=== PATIENT | female | born 1960 | race Caucasian/White ===

== ENCOUNTER 2018-11-24 13:23 | Outpatient (CLI) | payer BC, SELFPAY ==
--- NOTE | 2018-11-24 13:42 | DI.RAD_ITS ---
SYMPTOM/DIAGNOSIS: LT KNEE PAIN, CHRONIC, M25.562 LEFT KNEE: Four views. No priors. There is mild periarticular spurring in the posterior patella. The articular surfaces are otherwise well maintained. The bones are intact and normally mineralized. The soft tissues are unremarkable. IMPRESSION: Minimal degenerative changes of the left knee.
== END 2018-11-24 13:43 ==
PROVIDERS: PCP Internal Medicine; Visit Provider Internal Medicine
DX: M25.562 Pain in left knee (principal); M17.12 Unilateral primary osteoarthritis, left knee; G89.29 Other chronic pain
CPT/HCPCS: 73562

== ENCOUNTER 2019-08-10 09:12 | Outpatient (REF) | payer BC, SELFPAY ==
[2019-08-10 13:32] LABS: Calculated LDL 150 mg/dL; Cholesterol 244 mg/dL (50-200); HDL Cholesterol 79 mg/dL (40-60); Triglyceride 77 mg/dL (30-150)
== END 2019-08-10 09:32 ==
LOC: NCHCN 09:12
PROVIDERS: PCP Internal Medicine; Visit Provider Internal Medicine
DX: Z00.00 Encounter for general adult medical examination without abnormal findings (principal); Z13.220 Encounter for screening for lipoid disorders
CPT/HCPCS: 80061

== ENCOUNTER 2020-08-05 09:43 | Outpatient (CLI) | payer BC, SELFPAY ==
--- NOTE | 2020-08-05 09:00 | DI.RAD_ITS ---
EXAM: XR THUMB RT CLINICAL HISTORY: eval R thump IP swelling and pain TECHNIQUE: COMPARISON: No exams were available for comparison FINDINGS: Three views were obtained. There is nearly complete loss of cartilaginous joint space of the IP join t with very prominent marginal osteophytes at the joint margins. Mild narrowing cartilaginous joint space of the 1st MCP joint noted. Minimal marginal osteophytes at this joint. Greater multangular 1st metacarpal joint shows minimal degenerative changes as well. 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 RADIATION DOSE DELIVERED: Total DLP
== END 2020-08-05 10:03 ==
PROVIDERS: PCP Internal Medicine; Referring Provider Internal Medicine; Visit Provider Student in an Organized Health Care Education/Training Program
DX: M19.041 Primary osteoarthritis, right hand (principal)
CPT/HCPCS: 73140

== ENCOUNTER 2020-10-03 16:56 | Outpatient (REF) | payer BC, SELFPAY ==
[2020-10-06 16:58] LABS: Patient Race White; SARS-CoV-2 RNA Undetected (Undetected); SARS-CoV-2 Specimen Source Nasal
== END 2020-10-03 17:16 ==
LOC: NCHCN 16:56
PROVIDERS: PCP Internal Medicine; Visit Provider Internal Medicine
DX: Z20.828 Contact with and (suspected) exposure to other viral communicable diseases (principal)
CPT/HCPCS: U0003

== ENCOUNTER 2021-08-24 12:03 | Outpatient (CLI) | payer BC, SELFPAY ==
--- NOTE | 2021-08-24 12:47 | DI.RAD_ITS ---
Exam(s) XR CHEST 2V PA LATERAL EXAM: XR CHEST 2V PA LATERAL CLINICAL HISTORY: EXERTIONAL DYSPNEA, R06.09 TECHNIQUE: 2D digital imaging was performed of the chest. Two images were obtained. PA and lateral views were obtained. COMPARISON: CR LEFT RIBS TO INCLUDE CXR from 03/28/2012 CR LEFT RIBS TO INCLUDE CXR from 03/28/2012 FINDINGS: MEDIASTINUM: Normal. HEART: Normal. PULMONARY VASCULATURE: Normal. LUNGS: There are stable fibrotic changes within the lungs. No focal consolidating infiltrates. PLEURAL SPACE: No pleural effusion or pneumothorax. BONE:Within normal limits for the patient's age. OTHER FINDINGS:Normal. IMPRESSION: 1. No acute pulmonary findings. 2. Stable pulmonary fibrosis. DATA REPOSITORY: RADIATION DOSE DELIVERED:
== END 2021-08-24 12:23 ==
PROVIDERS: PCP Internal Medicine; Visit Provider Internal Medicine
DX: R06.09 Other forms of dyspnea (principal)
CPT/HCPCS: 71046

== ENCOUNTER 2021-08-24 12:33 | Outpatient (REF) | payer BC, SELFPAY ==
[2021-08-24 14:11] LABS: HCT 41.2 % (36.0-46.0); HGB 13.5 g/dL (11.2-15.7); MCH 30.5 pg (27.0-33.0); MCHC 32.8 % (32.0-36.0); MCV 93.2 fL (80-95); MPV 12.4 fL (8.0-11.0); Platelet Count 302 10^3/uL (130-400); RBC 4.42 10^6/uL (3.93-5.22); RDW 12.5 % (11.7-14.6); RDW-SD 43.6 fL; WBC 5.76 10^3/uL (4.4-10.8)
[2021-08-24 14:30] LABS: BUN 27 mg/dL (7-18); CREATININE 0.7 mg/dL (0.55-1.02); Calcium 8.8 mg/dL (8.5-10.1); Chloride 106 mmol/L (98-107); Glucose 84 mg/dL (74-106); Magnesium 1.9 mg/dL (1.8-2.4); NT-proBNP 74 pg/mL (<300); Potassium 4.6 mmol/L (3.5-5.1); Sodium 141 mmol/L (136-145)
== END 2021-08-24 12:34 | disposition home or self-care (01) ==
LOC: NCHCN 12:33
PROVIDERS: PCP Internal Medicine; Visit Provider Internal Medicine
DX: R00.2 Palpitations (principal); R06.09 Other forms of dyspnea
CPT/HCPCS: 80048; 85027; 83735; 83880

== ENCOUNTER 2021-09-01 01:04 | Outpatient (CLI) | payer BC, SELFPAY ==
[2021-09-01] MEDS: Albuterol HFA 18 GM 200 PUFF INH IH (14:18)
[2021-09-01] MEDS: Inhaler, Assist Device 1 EACH MC (14:18)
--- NOTE | 2021-09-05 17:35 | W.PFT ---
Date of service: 09/01/21 Time of Service: 13:09 Pulmonary Function Test Result Requesting Provider Kade Garcia Indications: Dyspnea on exertion Interpretation Spirometry: There is severe airflow obstruction. There is a reduced forced vital capacity. Although criteria is not met for bronchodilator response given the low volumes there likely is a significant bronchodilator response on the Lung Volumes: There is evidence of hyperinflation and air trapping Diffusion Capacity: Diffusion is normal Airway Pressure: Airways resistance is elevated Impression Severe airflow obstruction with hyperinflation and air trapping and a normal diffusion may represent either COPD with chronic bronchitis or uncontrolled asthma Clinical Correlation therefore is recommended.
== END 2021-09-01 01:05 | disposition home or self-care (01) ==
LOC: RT 01:04
PROVIDERS: PCP Internal Medicine; Visit Provider Internal Medicine
DX: R06.09 Other forms of dyspnea (principal); Z86.19 Personal history of other infectious and parasitic diseases; R06.2 Wheezing; R94.2 Abnormal results of pulmonary function studies
CPT/HCPCS: 94060; 94726; 94729

== ENCOUNTER 2021-12-11 16:28 | Outpatient (REF) | payer OTHER, SELFPAY ==
--- NOTE | 2021-12-11 15:03 | SKI_PTH ---
PATIENT: Cinthia Casillas LOC: [facility] U#:[id number] AGE/SX: 61/F ROOM: RE12/11/[address]: Ebony Alvarado : 1960 BED: DIS: 12/11/2021 SPEC #: [id number] RECD: 12/11/21 18:10 STATUS: VAMSHI REBarbra #: [id number] JOSE: 12/11/21 15:[address]: Ebony Alvarado DEPT: Surgical Specimen RECD BY: Yuli Stapleton ENTERED: 12/11/21 18:10 SP TYPE: SKI OT DR: Kit Garcia Tissues: 1 - SKIN BIOPSY(SHAVE/PUNCH) Procedures: SKIN LEVEL 4 Comments: [id number]
== END 2021-12-11 16:29 | disposition home or self-care (01) ==
LOC: LBN 16:28
PROVIDERS: PCP Internal Medicine; Visit Provider Surgery
DX: D23.71 Other benign neoplasm of skin of right lower limb, including hip (principal)
CPT/HCPCS: 88305

== ENCOUNTER 2022-05-23 16:49 | Outpatient (REF) | payer OTHER, SELFPAY ==
[2022-05-23 20:52] LABS: D-Dimer 304 ng/mlFEU (<500)
== END 2022-05-23 16:50 | disposition home or self-care (01) ==
LOC: NCHCN 16:49
PROVIDERS: PCP Internal Medicine; Visit Provider Nurse Practitioner Family
DX: I80.8 Phlebitis and thrombophlebitis of other sites (principal)
CPT/HCPCS: 85379

== ENCOUNTER → 2022-10-12 00:40 | Outpatient (CLI) | payer OTHER, SELFPAY ==
--- NOTE | 2022-10-12 14:18 | DI.DEXA_ITS ---
Exam(s) XR DEXA BONE DENSITY W/WO MELISSA EXAM: XR DEXA BONE DENSITY W/WO MELISSA CLINICAL HISTORY: OSTEOPOROSIS, M81.0, [facility], Z00.00 TECHNIQUE: COMPARISON: CR LEFT HIP COMPLETE from 05/14/2012 FINDINGS: DEXA scan was performed according to the usual protocol. Please see the accompanying data sheets. Findings for left hip scanning are T-score -3.9 with left femoral neck T-score -4.1. Lumbar spine scanning shows T-score -4.3. Left forearm scanning shows T-score -4.6. IMPRESSION: Measurements are consistent with osteoporosis according to the WHO criteria. The lateral vertebral s canogram shows no evidence of a vertebral compression fracture. RADIATION DOSE DELIVERED: Total DLP
== END ==
PROVIDERS: PCP Internal Medicine; Visit Provider Internal Medicine
DX: Z13.820 Encounter for screening for osteoporosis (principal); M81.0 Age-related osteoporosis without current pathological fracture
CPT/HCPCS: 77080

== ENCOUNTER 2022-10-25 15:35 | Outpatient (REF) | payer OTHER, SELFPAY ==
[2022-10-25 20:42] LABS: Abs Immature Grans 0.02 10^3/uL (0.0-0.06); Absolute Basophil Count 0.05 10^3/uL (0.0-0.2); Absolute Eosinophil Count 0.23 10^3/uL (0.0-0.7); Absolute Lymphocyte Count 1.79 10^3/uL (1.2-3.4); Absolute Monocyte Count 0.92 10^3/uL (0.1-0.8); Absolute Neutrophil Count 6.46 10^3/uL (1.2-6.7); Basophils % 0.5; Eosinophils % 2.4; HCT 41.9 % (36.0-46.0); HGB 13.7 g/dL (11.2-15.7); Immature Grans % 0.2; Lymphocytes % 18.9; MCH 29.9 pg (27.0-33.0); MCHC 32.7 % (32.0-36.0); MCV 92 fL (80-95); MPV 12.1 fL (8.0-11.0); Monocytes % 9.7; Neutrophils % 68.3; Platelet Count 383 10^3/uL (130-400); RBC 4.58 10^6/uL (3.93-5.22); RDW 12.6 % (11.7-14.6); RDW-SD 42.3 fL; WBC 9.47 10^3/uL (4.4-10.8)
[2022-10-25 21:03] LABS: ALT 15 U/L (14-59); AST 17 U/L (15-37); Albumin 3.8 g/dL (3.4-5.0); Alkaline Phosphatase 119 U/L (46-116); Anion Gap 9.5 mmol/L (3-11); BUN 18 mg/dL (7-18); Bilirubin, Total 0.4 mg/dL (0.2-1.0); CO2 29.5 mmol/L (21.0-32.0); CREATININE 0.7 mg/dL (0.55-1.02); Calcium 9.3 mg/dL (8.5-10.1); Chloride 99 mmol/L (98-107); Estimated GFR 97.72 (mL/min/1.73m2); Glucose 87 mg/dL (74-106); Potassium 4.8 mmol/L (3.5-5.1); Sodium 138 mmol/L (136-145)
== END 2022-10-25 15:36 | disposition home or self-care (01) ==
LOC: NCHCN 15:35
PROVIDERS: PCP Internal Medicine; Visit Provider Family Medicine
DX: R10.9 Unspecified abdominal pain (principal)
CPT/HCPCS: 80053; 85025

== ENCOUNTER 2022-10-30 12:50 | Emergency (ER) | payer OTHER, SELFPAY ==
[2022-10-30 12:56] VITALS: BP 104/81; PULSE 102; RESP 18; TEMP 36.9; O2SAT 97
--- NOTE | 2022-10-30 13:00 | DI.CT_ITS ---
Exam(s) CT ABDOMEN PELVIS W EXAM: CT ABDOMEN PELVIS W CLINICAL HISTORY: lower abdominal pain TECHNIQUE: Imaging Protocol: Axial computed tomography images with coronal and sagittal reformatted images were created and reviewed CONTRAST MATERIAL: Intravenous: Omnipaque 350 Contrast volume:79 mL Oral: No COMPARISON: No exams were available for comparison FINDINGS: ABDOMEN: Lung Bases: There is a small hiatal hernia. Bronchiectatic changes are seen in the lung bases. Liver: Normal density. No measurable mass. Portal, Superior Mesenteric, and Splenic Veins: Unremarkable. Gallbladder and Biliary Tract: No radiodense calculus or dilation. Pancreas: Normal density, no abnormal calcifications or inflammatory process. Spleen: Normal. Adrenals: No masses seen. Kidneys: Normal size, contour and axis. No radiodense stones or obstructive uropathy. No masses seen. Abdominal Aorta: Abdominal portion non-dilated. Atherosclerosis is present. Bowel: There is wall thickening seen in the distal sigmoid colon with pericolonic inflammatory change s present. There are scattered diverticula in the sigmoid colon. The findings are most suggestive o f acute diverticulitis. There is stool seen throughout the colon suggesting constipation. Appendix is unremarkable. Peritoneal Cavity: No ascites, collection or mesenteric inflammatory response. No free air. Lymph Nodes: Within normal limits. Bones: Within normal limits for the patient's age. Soft Tissues: Unremarkable. PELVIS: Bladder: Symmetric distention, no gross wall thickening. Reproductive Organs: Unremarkable as visualized. Lymph Nodes: Within normal limits. Bones: Within normal limits for the patient's age. IMPRESSION: 1. Findings of acute sigmoid diverticulitis. No abscess or free air is identified. 2. Findings were discussed with Dr. Hall at 2:15 p.m. on 10/30/2022. RADIATION DOSE DELIVERED: 636.07mGy.cm Total DLP DATA REPOSITORY: All CT scans at this facility are submitted to the National Radiology Data Registry (NRDR) Dose Index Registry (DIR) with the [employer] (A[employer]). RADIATION OPTIMIZATION: All CT scans at this facility use at least one of these dose optimization te chniques: automated exposure control; mA and/or kV adjustment per patient size (includes targeted exa ms where dose is matched to clinical indication); or iterative reconstruction.
--- NOTE | 2022-10-30 13:12 | ED.GENADUL_ITS ---
Discharge Plan Disposition Patient Disposition: Home Condition: Stable Discharge Details Clinical Impression: Abdominal pain, Diverticulitis Primary Care Provider: Kit Garcia ED Provider: Juan Hall Home Meds and New Rx's Prescriptions: New amoxicillin-pot clavulanate 875-125 mg tablet 1 tab PO BID Qty: 14 0RF Continued Spiriva with HandiHaler 18 mcg capsule, w/inhalation device 1 cap inhalation DAILY Rx Instructions: puncture 1 cap using device; one dose = 2 inhalations calcium carbonate-vitamin D3 [Calcium 600 with Vitamin D3] 600 mg-12.5 mcg (500 unit) capsule 6 cap PO DAILY Premarin 0.625 mg/gram cream 0.625 mg vaginal .COMPLEX Rx Instructions: per referral pt to use twice a week alendronate [Fosamax] 70 mg tablet 1 tab PO QWEEK Label Comments: Take 1 tablet by mouth once a week on empty stomach w/ full glass water. Stay upright for 30 min after. Breztri Aerosphere 160-9-4.8 mcg/actuation Hfa Aerosol Inhaler 2 inh INHALATION BID Discharge Instructions Instructions: Diverticulitis (ED) Additional Instructions: if not improving within a week follow up with your primary care provider if you feel more ill, have severe worsening pain or persistent vomiting return to the emergency department Medical Decision Making 61 yo female with no prior abdominal surgeries and no significant pmhx comes in with cc of abdominal pain. She states she has had a dull ache for weeks but the last few days has had worse pain and is sharp and cramping in nature. She denies fevers, chills, chest pain, n/v, urinary symptoms. She arrives stable, caox4 speaking clearly in full sentences. She localizes the pain to the lower abdomen. She has a soft abdomen on exam, no distention, no upper abdominal tenderness but is tender to deep palpation in both the lower right and left abdomen without guarding. Unclear etiology for her pain, will obtain cbc, cmp, lipase and ct abdomen pelvis to evaluate for pancreatitis, sbo and diverticulitis. No severe pain or pain out of proportion to exam so doubt mesenteric ischemia labs show wbc of 14 otherwise benign, ct shows diverticulitis without abscess or perforation. Pt stable, sleeping on reassessment and awakens easily to voice, only has mild tenderness in llq no guarding. She is stable for d/c,will place on augmentin and advised to f/u with pcp, return precautions given Differential Diagnosis Differential Diagnosis: diverticulitis, colitis, sbo Medical Records Medical records reviewed: Yes I reviewed the patient's medical records. Lab Data Lab results reviewed: Yes I reviewed the patient's lab results. Sign Out No HPI General Mode of arrival: ambulatory . Date/Time Provider Initiated Documentation: 10/30/22 12:52 . Limitations to Documentation: no limitations . Information obtained by: patient . History of Present Illness 61 year old F presents to the emergency department with the chief complaint of abdominal pain, described as moderate, Quality is described as stabbing, and is localized to the abdomen. Patient reports no radiation. Patient started experiencing this week(s) (4) and it has been intermittent. No relieving factors improve symptom(s), No exacerbating factors reported . Patient notes denies fever/chills and nausea/vomiting. Patient did receive the following treatments prior to arrival, none Related Data Home Medications Medication Instructions Recorded Confirmed conjugated estrogens 0.625 mg/gram 0.625 mg vaginal .COMPLEX 09/27/21 10/30/22 vaginal cream (Premarin) calcium carbonate 600 mg-vitamin 6 cap PO DAILY 11/27/21 10/30/22 D3 12.5 mcg (500 unit) capsule (Calcium 600 with Vitamin D3) tiotropium bromide 18 mcg capsule 1 cap inhalation DAILY 11/27/21 10/30/22 with inhalation device (Spiriva with HandiHaler) alendronate 70 mg tablet (Fosamax) 1 tab PO QWEEK 10/30/22 10/30/22 amoxicillin 875 mg-potassium 1 tab PO BID #14 tabs 10/30/22 clavulanate 125 mg tablet budesonide 160 mcg-glycopyr 9 2 inh inhalation BID 10/30/22 10/30/22 mcg-formot 4.8 mcg/actuation HFA inhaler (Breztri Aerosphere) Previous Rx's Medication Instructions Recorded amoxicillin 875 mg-potassium 1 tab PO BID #14 tabs 10/30/22 clavulanate 125 mg tablet Allergies Allergy/AdvReac Type Severity Reaction Status Date / Time benzoyl peroxide Allergy Mild Rash Verified 10/30/22 13:03 famotidine [From Pepcid] Allergy Mild Verified 10/30/22 13:03 General Stated Complaint: Abd Prob ERIN: 3 Review of Systems All systems reviewed & are unremarkable except as noted in HPI and below Constitutional Constitutional: Denies chills, Denies fever(s) and Denies weakness Cardiovascular Cardiovascular: Denies chest pain and Denies dyspnea Respiratory Respiratory: Denies cough and Denies dyspnea Gastrointestinal Gastrointestinal: Denies nausea and Denies vomiting Musculoskeletal Musculoskeletal: Denies joint swelling Integumentary/Breasts Skin/Breast: Denies rash Neurologic Neurologic: Denies weakness PFSH All Active Problems (Updated 10/30/22 @ 14:43 by Juan Hall MD) Abdominal pain (Acute) Diverticulitis (Chronic) Dermatofibroma of right lower extremity (Acute) excised 12/09 Skin tags, multiple acquired (Acute) Medical History (Updated 10/30/22 @ 14:43 by Juan Hall MD) 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 Osteoporosis Pain of right thumb Reactive airway disease Skin lesion of right leg Social History Smoking/Tobacco Use Status: Never Smoking risk assessment performed?: Yes Alcohol Intake: never Drug use: Never Substance use type: does not use Do you feel safe at home: Yes Do you feel safe in your relationship?: Yes Exam Const General: no acute distress Orientation: alert HENMT Head: normal to inspection Ears: external ears normal General nose exam: external nose normal Mouth: moist mucous membranes Eyes General: appearance normal, both eyes and all related structures Neck Neck: normal visual inspection Resp Effort & Inspection: normal respiratory effort and able to speak in complete sentences Cardio Rate: regular rate GI Palpation: soft and tender Skin General skin exam: no rashes or lesions noted Neuro General: patient alert and patient oriented x3 Extrem General: normal to inspection Psych Mental Status: mental status grossly normal Course Vital Signs Vital signs: Vital Signs Temperature 36.9 C 10/30/22 12:56 Pulse 102 H 10/30/22 12:56 Respiratory Rate 18 10/30/22 12:56 Blood Pressure 104/81 10/30/22 12:56 Pulse Oximetry 97 10/30/22 12:56 Temperature 36.9 C 10/30/22 12:56 Temperature Source Oral 10/30/22 12:56 Pulse 102 H 10/30/22 12:56 Respiratory Rate 18 10/30/22 12:56 Respiratory Effort Non-Labored 10/30/22 13:02 Blood Pressure 104/81 10/30/22 12:56 Blood Pressure Position Sitting 10/30/22 12:56 Pulse Oximetry 97 10/30/22 12:56 Oxygen Delivery Method High Flow System 10/30/22 12:56 Oxygen Flow Rate 0 10/30/22 12:56 Pain Level 9 10/30/22 12:56
[2022-10-30 13:27] LABS: Abs Immature Grans 0.08 10^3/uL (0.0-0.06); Absolute Eosinophil Count 0.11 10^3/uL (0.0-0.7); Absolute Lymphocyte Count 0.99 10^3/uL (1.2-3.4); Absolute Monocyte Count 1.17 10^3/uL (0.1-0.8); Basophils % 0.4; Eosinophils % 0.8; HCT 41.3 % (36.0-46.0); HGB 13.6 g/dL (11.2-15.7); Immature Grans % 0.6; MCH 29.6 pg (27.0-33.0); MCHC 32.9 % (32.0-36.0); MCV 90 fL (80-95); MPV 11.1 fL (8.0-11.0); Monocytes % 8.2; Platelet Count 435 10^3/uL (130-400); RBC 4.59 10^6/uL (3.93-5.22); RDW 12.2 % (11.7-14.6); RDW-SD 40.4 fL; WBC 14.21 10^3/uL (4.4-10.8)
[2022-10-30 13:28] LABS: Absolute Basophil Count 0.06 10^3/uL (0.0-0.2); Absolute Neutrophil Count 11.79 10^3/uL (1.2-6.7)
[2022-10-30 13:41] LABS: ALT 12 U/L (14-59); AST 12 U/L (15-37); Albumin 3.5 g/dL (3.4-5.0); Alkaline Phosphatase 117 U/L (46-116); Anion Gap 9.8 mmol/L (3-11); BUN 14 mg/dL (7-18); Bilirubin, Total 0.5 mg/dL (0.2-1.0); CO2 28.2 mmol/L (21.0-32.0); CREATININE 0.8 mg/dL (0.55-1.02); Calcium 9.4 mg/dL (8.5-10.1); Chloride 98 mmol/L (98-107); Estimated GFR 83.26 (mL/min/1.73m2); Glucose 101 mg/dL (74-106); Lipase 53 U/L (73-393); Magnesium 1.9 mg/dL (1.8-2.4); Potassium 3.6 mmol/L (3.5-5.1); Sodium 136 mmol/L (136-145); Total Protein 8.6 g/dL (6.4-8.2)
[2022-10-30] MEDS: Omnipaque 350 MG/ML 500 ML BTL-Imaging package IJ (13:41)
[2022-10-30] MEDS: Normal Saline - Diluent 50 ML VIAL IJ (13:42)
[2022-10-30 13:45] LABS: Bilirubin Negative (Negative); Blood Trace-lysed (Negative); Clarity Clear (Clear); Glucose Negative (Negative); Ketones 15 mg/dL (Negative); Leukocyte Esterase Negative (Negative); Nitrite Negative (Negative); Urobilinogen 0.2 EU/dL (Up TO 0.2)
[2022-10-30 13:55] LABS: Bacteria Few HPF (Negative); Casts Negative LPF (Negative); Crystals Negative HPF (Negative); Epithelial Cells Negative HPF (Negative); Mucus Negative (Negative); Other Cells Rare Renal (Negative); RBC 0-2 HPF (0-2); WBC Negative HPF (0-5)
[2022-10-30 13:56] LABS: C & S Indicated? No
[2022-10-30] MEDS: Normal Saline 1,000 ML 1000 ML IV (14:54)
[2022-10-30 14:55] VITALS: BP 122/64; PULSE 96; RESP 18; TEMP 37.2; O2SAT 94
== END 2022-10-30 14:55 | disposition home or self-care (01) ==
PROVIDERS: Emergency Provider Emergency Medicine; PCP Internal Medicine
DX: K57.92 Diverticulitis of intestine, part unspecified, without perforation or abscess without bleeding (principal); J45.909 Unspecified asthma, uncomplicated; Z79.51 Long term (current) use of inhaled steroids
CPT/HCPCS: 80053; 83690; 96360; 99285; 74177; 81003; 81015; 83735; 85025; 99284

== ENCOUNTER 2022-12-14 02:49 | Observation (INO) | payer OTHER, SELFPAY ==
[2022-12-14] VITALS (7 sets, daily range): BP systolic 116–143; BP diastolic 65–75; PULSE 66–94; RESP 16–18; TEMP 36.3–37.3; O2SAT 94–99
--- NOTE | 2022-12-14 02:57 | ED.GENADUL_ITS ---
Discharge Plan Disposition Patient Disposition: Admit to [facility] Condition: Stable Discharge Details Clinical Impression: Acute diverticulitis, Intraabdominal fluid collection Admit Date/Time: 12/14/22 05:24 Admit Provider: Phillip Marsh Attending Provider: Phillip Marsh Primary Care Provider: Kit Garcia ED Provider: Jennifer Deleon Discharge Data Discharge Date/Time-TO BE ENTERED AT DEPARTURE: 12/14/22 10:31 Medical Decision Making 0300 -- 62yo F diagnosed with diverticulitis here last month and treated with 2 rounds of augmentin with persistence of abdominal pain and nausea presents with worsening symptoms since yesterday. Vitals within normal limits. Patient is afebrile. Her abdomen is soft and tender across the lower quadrant. Suspect recurrent diverticulitis. We will obtain screening labs, repeat CT. 05 --labs reviewed. White blood cell count 14.8 which is similar to previous result last month. Remainder of labs unremarkable. CT reviewed and notes acute diverticulitis with small fluid collection conc erning for abscess. Case discussed and imaging reviewed with Dr. Marsh who recommends admission for IV antibiotics as patient has failed 2 treatment regimens of outpatient oral antibiotics. Recommends LR at 100 cc/h. Agrees with plan for Cipro and Flagyl IV. Patient can be given ice chips and clear liquids at this time. Dr. Marsh accepts patient for admission. Results discussed with the patient and she is agreeable with plan for admission. She states her pain and nausea is much improved. Medical Records Medical records reviewed: Yes I reviewed the patient's medical records. Medical records narrative: CT abdomen/pelvis 11/28/22 Impression: Some improvement in sigmoid diverticulitis however significant inflammation persists.? No abscess or perforation.? New findings. CT abdomen/pelvis 10/30/22 IMPRESSION: 1. Findings of acute sigmoid diverticulitis.? No abscess or free air is identified. Imaging Data Radiologic Study: Radiologist's impression: ?CT Abdomen And Pelvis With Contrast Exam date and time: 12/14/2022 3:27 AM Age: 62 years old Clinical indication: Abdominal pain; Localized; Lower; Additional info: Lower abdominal pain, h/o diverticulitis TECHNIQUE: Imaging protocol: Computed tomography of the abdomen and pelvis with contrast. Radiation optimization: All CT scans at this facility use at least one of these dose optimization techniques: automated exposure control; mA and/or kV adjustment per patient size (includes targeted exams where dose is matched to clinical indication); or iterative reconstruction. Contrast material: OMNI 350; Contrast volume: 100 ml; Contrast route: INTRAVENOUS (IV);? COMPARISON: CT ABDOMEN PELVIS W 11/28/2022 1:47 PM FINDINGS: Liver: Normal. No mass. Gallbladder and bile ducts: Normal. No calcified stones. No ductal dilation. Pancreas: Normal. No ductal dilation. Spleen: Normal. No splenomegaly. Adrenal glands: Normal. No mass. Kidneys and ureters: Normal. No hydronephrosis. Stomach and bowel: Colonic diverticulosis There is evidence of bowel wall thickening involving the rectum and sigmoid colon, with significant surrounding fat stranding. Findings are suspicious for acute diverticulitis. There is a 1.7 x 1.3 cm loculated fluid collection adjacent to the distal sigmoid colon, suspicious for abscess. No visualized perforation. Small bowel loops are unremarkable. Appendix: No evidence of appendicitis. Intraperitoneal space: Small volume of free fluid within the pelvis. Vasculature: Unremarkable. No abdominal aortic aneurysm. Lymph nodes: Unremarkable. No enlarged lymph nodes. Urinary bladder: Unremarkable as visualized. Reproductive: Unremarkable as visualized. Bones/joints: Unremarkable. No acute fracture. Soft tissues: Unremarkable. IMPRESSION: 1. Colonic diverticulosis There is evidence of bowel wall thickening involving the rectum and sigmoid colon, with significant surrounding fat stranding. Findings are suspicious for acute diverticulitis. There is a 1.7 x 1.3 cm loculated fluid collection adjacent to the distal sigmoid colon, suspicious for abscess. No visualized perforation. 2. Small volume of free fluid within the pelvis. Lab Data Lab results reviewed: Yes I reviewed the patient's lab results. Labs: Laboratory Tests Range/Units 12/14/22 12/14/22 12/14/22 03:10 03:10 03:10 WBC (4.4-10.8) 10^3/uL 14.83 H RBC (3.93-5.22) 10^6/uL 4.20 Hgb (11.2-15.7) g/dL 12.0 Hct (36.0-46.0) % 37.1 MCV (80-95) fL 88 MCH (27.0-33.0) pg 28.6 MCHC (32.0-36.0) % 32.3 RDW (11.7-14.6) % 13.0 Plt Count (130-400) 10^3/uL 451 H MPV (8.0-11.0) fL 10.6 Immature Gran % 0.5 Neutrophils % 89.7 Lymphocytes % 4.7 Monocytes % 4.7 Eosinophils % 0.1 Basophils % 0.3 Nucleated RBC % (0.0-0.3) % 0.0 Absolute Neutrophils (1.2-6.7) 10^3/uL 13.30 H Absolute Lymphocytes (1.2-3.4) 10^3/uL 0.70 L Absolute Monocytes (0.1-0.8) 10^3/uL 0.70 Absolute Eosinophils (0.0-0.7) 10^3/uL 0.01 Absolute Basophils (0.0-0.2) 10^3/uL 0.04 Sodium (136-145) mmol/L 136 Potassium (3.5-5.1) mmol/L 4.1 Chloride (98-107) mmol/L 101 Carbon Dioxide (21.0-32.0) mmol/L 24.6 Anion Gap (3-11) mmol/L 10.4 BUN (7-18) mg/dL 10 Creatinine (0.55-1.02) mg/dL 0.7 Est GFR (CKD-EPI 2020) (mL/min/1.73m2) 97.12 Glucose (74-106) mg/dL 139 H Calcium (8.5-10.1) mg/dL 9.1 Total Bilirubin (0.2-1.0) mg/dL 0.4 AST (15-37) U/L 11 L ALT (14-59) U/L 8 L Alkaline Phosphatase (46-116) U/L 106 Total Protein (6.4-8.2) g/dL 7.9 Albumin (3.4-5.0) g/dL 3.0 L Lipase (73-393) U/L 46 HPI General Mode of arrival: ambulatory . Date/Time Provider Initiated Documentation: 12/14/22 02:49 . Limitations to Documentation: no limitations . Information obtained by: patient . HPI Narrative: Pt is a 62yo F who presents to the ED with a complaint of worsening abdominal pain, nausea and vomiting since yesterday. Patient was seen here in the ED 6 weeks ago and diagnosed with diverticulitis and placed on Augmentin which she finished and then had a repeat CT 2 weeks ago ordered for follow up of the diverticulitis from her pcp office which noted persistent inflammation and she was prescribed augmentin a 2nd time but with a higher dose at 1000mg-62.5mg without complete resolution of symptoms. Pt states since eating potato soup yesterday she has had increased gas, abdominal pain and nausea. She states she has been dry heaving. She denies fever. Related Data Home Medications Medication Instructions Recorded Confirmed tiotropium bromide 18 mcg capsule 1 cap inhalation PRN PRN 11/27/21 12/14/22 with inhalation device budesonide-formoterol HFA 80 1 inh inhalation DAILY AM 12/14/22 12/14/22 mcg-4.5 mcg/actuation aerosol inhaler (Symbicort) Allergies Allergy/AdvReac Type Severity Reaction Status Date / Time benzoyl peroxide Allergy Mild Rash Verified 12/14/22 05:28 famotidine [From Pepcid] Allergy Mild Verified 12/14/22 05:28 General Stated Complaint: Abd Prob ERIN: 3 Review of Systems All systems reviewed & are unremarkable except as noted in HPI and below Constitutional Constitutional: Reports as per HPI, Denies chills and Denies fever(s) Eyes Eyes: Denies blurry vision ENT Ears, Nose, Mouth, and Throat: Denies dizziness, Denies sore throat and Denies throat swelling Cardiovascular Cardiovascular: Denies chest pain and Denies dyspnea Respiratory Respiratory: Denies cough and Denies dyspnea Gastrointestinal Gastrointestinal: Denies abdominal pain, Denies diarrhea and Denies vomiting Genitourinary Genitourinary: Denies hematuria and Denies dysuria Musculoskeletal Musculoskeletal: Denies back pain and Denies numbness Integumentary/Breasts Skin/Breast: Denies lesions and Denies rash Neurologic Neurologic: Denies dizziness, Denies localized weakness and Denies numbness Allergic/Immunologic Allergic/Immunologic: Denies throat swelling PFSH All Active Problems (Updated 12/14/22 @ 05:42 by Jennifer Deleon DO) Acute diverticulitis (Acute) Intraabdominal fluid collection (Acute) Dermatofibroma of right lower extremity (Acute) excised 12/09 Skin tags, multiple acquired (Acute) Medical History (Updated 12/14/22 @ 05:42 by Jennifer Deleon DO) Osteoporosis Reactive airway disease 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 Surgical History (Updated 12/14/22 @ 03:23 by Jennifer Deleon DO) H/O ovarian cystectomy Social History Smoking/Tobacco Use Status: Never Smoking risk assessment performed?: Yes Alcohol Intake: never Drug use: Never Substance use type: does not use Do you feel safe at home: Yes Do you feel safe in your relationship?: Yes Exam Const General: cooperative, healthy appearing and no acute distress Orientation: alert, awake and oriented x3 HENMT Head: normal to inspection Face and sinus: normal facial exam Eyes General: appearance normal, both eyes and all related structures Pupils: PERRL EOM: EOM intact bilaterally Neck Neck: normal visual inspection and No submandibular swelling Lymphatic: no lymphadenopathy noted Chest Chest: normal inspection of the chest and no tenderness Resp Effort & Inspection: normal respiratory effort and able to speak in complete sentences Auscultation: clear to auscultation bilaterally Cardio Rate: regular rate Rhythm: regular rhythm GI Inspection: normal to inspection Palpation: soft, not firm, not rigid and tender in the LLQ, in the RLQ and suprapubicly Auscultation: hypoactive bowel sounds Skin General skin exam: no rashes or lesions noted Neuro General: patient alert, patient awake and patient oriented x3 Cognition: normal cognition Speech: speech normal Motor: muscle tone normal throughout Sensory Exam: no sensory deficits noted Extrem General: normal to inspection, full ROM, capillary refill normal, no calf tenderness bilaterally and no edema Psych Appearance: grossly normal Mental Status: mental status grossly normal Speech and Movement: speech and movement normal Affect: normal affect
--- NOTE | 2022-12-14 03:00 | DI.CT_ITS ---
Exam(s) CT ABDOMEN PELVIS W EXAM: CT ABDOMEN PELVIS W CLINICAL HISTORY: lower abdominal pain, h/o diverticulitis TECHNIQUE: Imaging Protocol: Axial computed tomography images with coronal and sagittal reformatted images were created and reviewed CONTRAST MATERIAL: Intravenous: Omnipaque 350 Contrast volume:100 mL Oral: No COMPARISON: CT CT ABDOMEN PELVIS W from 11/28/2022 FINDINGS: ABDOMEN: Lung Bases: There is a small hiatal hernia. Liver: Normal density. No measurable mass. Focal fatty infiltration is seen in the left lobe. Portal, Superior Mesenteric, and Splenic Veins: Unremarkable. Gallbladder and Biliary Tract: No radiodense calculus or dilation. Pancreas: Normal density, no abnormal calcifications or inflammatory process. Spleen: Normal. Adrenals: No masses seen. Kidneys: Normal size, contour and axis. No radiodense stones or obstructive uropathy. No masses seen. Abdominal Aorta: Abdominal portion non-dilated. Bowel: There is no evidence of obstruction. There is persistent bowel wall thickening seen in the si gmoid colon and rectum. Pericolonic inflammatory changes are present. There are few scattered diver ticula present. There is a 1.5 x 2.1 cm fluid collection in the pelvis adjacent to the inflamed colo n. This may represent a small abscess. There is a small amount of fluid in the dependent portion of the pelvis. No evidence of appendicitis. Peritoneal Cavity: Please see the above section under bowel. No free air. Lymph Nodes: Within normal limits. Bones: Within normal limits for the patient's age. Soft Tissues: Unremarkable. PELVIS: Bladder: Symmetric distention, no gross wall thickening. Reproductive Organs: Unremarkable as visualized. Lymph Nodes: Within normal limits. Bones: Within normal limits for the patient's age. IMPRESSION: 1. Findings again seen of colonic diverticulitis. There does appear to be a in capsulated fluid sandrine ection measuring 1.5 x 2.1 cm adjacent to the inflamed colon suspicious for small abscess. No free a ir is identified. 2. Trace amount of free fluid in the pelvis. RADIATION DOSE DELIVERED: 485.25mGy.cm Total DLP DATA REPOSITORY: All CT scans at this facility are submitted to the National Radiology Data Registry (NRDR) Dose Index Registry (DIR) with the [employer] (ACR). RADIATION OPTIMIZATION: All CT scans at this facility use at least one of these dose optimization te chniques: automated exposure control; mA and/or kV adjustment per patient size (includes targeted exa ms where dose is matched to clinical indication); or iterative reconstruction.
[2022-12-14 03:18] LABS: Abs Immature Grans 0.08 10^3/uL (0.0-0.06); Absolute Basophil Count 0.04 10^3/uL (0.0-0.2); Absolute Eosinophil Count 0.01 10^3/uL (0.0-0.7); Basophils % 0.3; Eosinophils % 0.1; HCT 37.1 % (36.0-46.0); Immature Grans % 0.5; Lymphocytes % 4.7; MCH 28.6 pg (27.0-33.0); MCHC 32.3 % (32.0-36.0); MCV 88 fL (80-95); MPV 10.6 fL (8.0-11.0); Monocytes % 4.7; Neutrophils % 89.7; Platelet Count 451 10^3/uL (130-400); RDW-SD 42.5 fL; WBC 14.83 10^3/uL (4.4-10.8)
[2022-12-14 03:26] LABS: Lipase 46 U/L (73-393)
[2022-12-14] MEDS: ACETAMINOPHEN 1,000 MG/100 ML BTL 400 MG IVPB ×2 (03:26→10:43)
[2022-12-14] MEDS: Normal Saline 1,000 ML 1000 ML IV (03:27)
[2022-12-14] MEDS: Ondansetron 4 MG/2 ML VIAL IVP ×2 (03:28→17:56)
[2022-12-14] MEDS: Omnipaque 350 MG/ML 100 ML BTL IJ (03:28)
[2022-12-14] MEDS: Normal Saline - Diluent 50 ML VIAL IJ (03:29)
[2022-12-14 03:31] LABS: ALT 8 U/L (14-59); AST 11 U/L (15-37); Alkaline Phosphatase 106 U/L (46-116); Anion Gap 10.4 mmol/L (3-11); BUN 10 mg/dL (7-18); Bilirubin, Total 0.4 mg/dL (0.2-1.0); CO2 24.6 mmol/L (21.0-32.0); CREATININE 0.7 mg/dL (0.55-1.02); Calcium 9.1 mg/dL (8.5-10.1); Chloride 101 mmol/L (98-107); Estimated GFR 97.12 (mL/min/1.73m2); Glucose 139 mg/dL (74-106); Potassium 4.1 mmol/L (3.5-5.1); Sodium 136 mmol/L (136-145); Total Protein 7.9 g/dL (6.4-8.2)
--- NOTE | 2022-12-14 04:43 | DI.VRAD_ITS ---
PROCEDURE INFORMATION: Exam: CT Abdomen And Pelvis With Contrast Exam date and time: 12/14/2022 3:27 AM Age: 62 years old Clinical indication: Abdominal pain; Localized; Lower; Additional info: Lower abdominal pain, h/o diverticulitis TECHNIQUE: Imaging protocol: Computed tomography of the abdomen and pelvis with contrast. Radiation optimization: All CT scans at this facility use at least one of these dose optimization techniques: automated exposure control; mA and/or kV adjustment per patient size (includes targeted exams where dose is matched to clinical indication); or iterative reconstruction. Contrast material: OMNI 350; Contrast volume: 100 ml; Contrast route: INTRAVENOUS (IV); COMPARISON: CT ABDOMEN PELVIS W 11/28/2022 1:47 PM FINDINGS: Liver: Normal. No mass. Gallbladder and bile ducts: Normal. No calcified stones. No ductal dilation. Pancreas: Normal. No ductal dilation. Spleen: Normal. No splenomegaly. Adrenal glands: Normal. No mass. Kidneys and ureters: Normal. No hydronephrosis. Stomach and bowel: Colonic diverticulosis There is evidence of bowel wall thickening involving the rectum and sigmoid colon, with significant surrounding fat stranding. Findings are suspicious for acute diverticulitis. There is a 1.7 x 1.3 cm loculated fluid collection adjacent to the distal sigmoid colon, suspicious for abscess. No visualized perforation. Small bowel loops are unremarkable. Appendix: No evidence of appendicitis. Intraperitoneal space: Small volume of free fluid within the pelvis. Vasculature: Unremarkable. No abdominal aortic aneurysm. Lymph nodes: Unremarkable. No enlarged lymph nodes. Urinary bladder: Unremarkable as visualized. Reproductive: Unremarkable as visualized. Bones/joints: Unremarkable. No acute fracture. Soft tissues: Unremarkable. IMPRESSION: 1. Colonic diverticulosis There is evidence of bowel wall thickening involving the rectum and sigmoid colon, with significant surrounding fat stranding. Findings are suspicious for acute diverticulitis. There is a 1.7 x 1.3 cm loculated fluid collection adjacent to the distal sigmoid colon, suspicious for abscess. No visualized perforation. 2. Small volume of free fluid within the pelvis. Dictated and Authenticated by: Raul Conner MD. Ordering:KATIE Rodriguez MD
[2022-12-14] MEDS: CIPROFLOXACIN 400 MG/200 ML BAG 200 MG IVPB ×2 (05:37→17:50)
[2022-12-14] MEDS: metroNIDAZOLE 500 MG/100 ML BAG 100 MG IVPB ×3 (05:55→20:17)
[2022-12-14 05:59] LABS: Source Nasal/Nares
[2022-12-14 06:00] LABS: Bilirubin Negative (Negative); Blood Negative (Negative); Clarity Clear (Clear); Glucose Negative (Negative); Ketones 15 mg/dL (Negative); Leukocyte Esterase Negative (Negative); Nitrite Negative (Negative); Specific Gravity <= 1.005 (1.005-1.025); Urobilinogen 0.2 EU/dL (Up TO 0.2)
[2022-12-14 06:30] LABS: COVID-19 PCR Negative (Negative)
[2022-12-14] MEDS: Lactated Ringers 1,000 ML 100 ML IV ×2 (07:29→19:27)
[2022-12-14] MEDS: Normal Saline Flush 10 ML SYR IVP ×3 (07:29→20:16)
--- NOTE | 2022-12-14 09:30 | INITIAL_ITS ---
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 Independent at baseline in the community. CURRENT FUNCTIONAL STATUS:: Remains inpatient on conservative therapy; IVF, IV ABX, pain management. Up out of bed independently. Has patient been provided with info about the portal/API?: Yes Did the patient sign up for the portal?: Yes CODE STATUS:: Full Code INSURANCE COVERAGE / FINANCIAL ISSUES:: [employer] CURRENT HOME/COMMUNITY SERVICES/EQUIPMENT:: None, currently. PRIMARY CARE PHYSICIAN:: Kit Garcia POTENTIAL DISCHARGE NEEDS:: Follow up appointments. PATIENT/FAMILY EDUCATION NEEDS:: Review discharge instructions, discuss Ask Me Three. ANTICIPATED BARRIERS TO DISCHARGE:: None identified. TRANSPORTATION:: Via private vehicle with her , Guille. PLAN:: Cinthia will discharge home when ready per MD. She will follow up with her PCP and plan of care as prescribed. She will transport via private vehicle with her , Guille.
--- NOTE | 2022-12-14 11:41 | HPE_ITS ---
Date of service: 12/14/22 Time of Service: 11:42 Assessment and Plan Assessment and plan (1) Acute diverticulitis: Status: Acute Assessment and plan: This is a 62-year-old female with persistent acute diverticulitis since 10/2022, who has not succeeded with outpatient treatment. She has now developed a small abscess. However, given that she is clinically improving, and is not toxic, will hold off on an IR consult for now. If her clinical picture worsens, will consider requesting drainage. --sips of clear liquids --IV fluids --IV cipro/ metronidazole --OOB and ambulate --pain control --daily labs (2) Reactive airway disease: Assessment and plan: --continue home meds History of Present Illness History of Present Illness Chief Complaint: abdominal pain, dry heaving Narrative: This is a 62-year-old female who presents with worsening lower abdominal pain and dry heaving. She has recently been treated for acute diverticulitis. She was first diagnosed on 10/30/22, and was prescribed one week of Augmentin. She had some return of symptoms, and on 11/28/22 was placed on another week of Augmentin at a higher dose. She states that she felt improved for a couple of days following that course of antibiotics, but it has not completely resolved. She presented to the [facility] ED in the mortgage banker hours with worsening lower abdominal pain, and dry heaving. She denies fevers/chills, dysuria, chest pain, or SOB. She has not been able to advance her diet beyond full liquids, and has been having loose stools with mucus, and rare blood. Prior to the initial diagnosis in October, she had once or twice monthly had post-prandial episodes where she would have significant pain, and then self-limited diarrhea. Her last colonoscopy was in 11/04/2012 and demonstrated diverticulosis. She thinks she did a stool test last year. She has never had an EGD, and denies significant upper GI symptoms. She is already feeling better this AM with IV fluids, and IV antibiotics. Review of Systems Narrative: A 10-point ROS was conducted, pertinent findings above. PFSH All Active Problems (Updated 12/14/22 @ 05:42 by Jennifer Deleon DO) Acute diverticulitis (Acute) Intraabdominal fluid collection (Acute) Dermatofibroma of right lower extremity (Acute) excised 12/09 Skin tags, multiple acquired (Acute) Medical History (Updated 12/14/22 @ 05:42 by Jennifer Deleon DO) Osteoporosis Reactive airway disease 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 Surgical History (Updated 12/14/22 @ 03:23 by Jennifer Deleon DO) H/O ovarian cystectomy Social History Smoking/Tobacco Use Status: Never Smoking risk assessment performed?: Yes Alcohol Intake: never Drug use: Never Substance use type: does not use Do you feel safe at home: Yes Do you feel safe in your relationship?: Yes Meds Allergies and Home Medications Allergies Allergy/AdvReac Type Severity Reaction Status Date / Time benzoyl peroxide Allergy Mild Rash Verified 12/14/22 05:28 famotidine [From Pepcid] Allergy Mild Verified 12/14/22 05:28 Home Medications Medication Instructions Recorded Confirmed Type tiotropium bromide 18 mcg capsule 1 cap inhalation DAILY 11/27/21 12/14/22 History with inhalation device (Spiriva with HandiHaler) budesonide 160 mcg-glycopyr 9 2 inh inhalation BID 10/30/22 12/14/22 History mcg-formot 4.8 mcg/actuation HFA inhaler (Breztri Laurantis Pharmaphere) Exam Const General: cooperative, healthy appearing, comfortable and no acute distress Nutritional Appearance: average body habitus and well nourished Orientation: alert, awake and oriented x3 Neck Neck: normal visual inspection, trachea midline and supple Resp Effort & Inspection: normal respiratory effort and able to speak in complete sentences Auscultation: clear to auscultation bilaterally Cardio Rate: regular rate Rhythm: regular rhythm GI Inspection: normal to inspection, no abdominal wall ecchymosis and non-distended Palpation: soft, not firm, no guarding, not rigid and tender (very mild LLQ/sup rapubic tenderness) Auscultation: normal bowel sounds Skin General skin exam: no rashes or lesions noted Psych Appearance: grossly normal and well kempt Mental Status: mental status grossly normal Speech and Movement: speech and movement normal Mood: congruent mood Attitude: cooperative Insight: insight good Judgment: judgment good Results Imaging Imaging Studies: CT ABD/PEL (12/14/2022): Patient Name: Cinthia Casillas Unit #: [id number] Loc: ER ? Ordering Provider:? Status: REG ER ? Primary Care Provider: Kit Garcia M.D. Date of Exam: 12/14/22 Sex: F ? : 1960 Age: 62 ? Exam(s) PROCEDURE INFORMATION: Exam: CT Abdomen And Pelvis With Contrast Exam date and time: 12/14/2022 3:27 AM Age: 62 years old Clinical indication: Abdominal pain; Localized; Lower; Additional info: Lower abdominal pain, h/o diverticulitis TECHNIQUE: Imaging protocol: Computed tomography of the abdomen and pelvis with contrast. Radiation optimization: All CT scans at this facility use at least one of these dose optimization techniques: automated exposure control; mA and/or kV adjustment per patient size (includes targeted exams where dose is matched to clinical indication); or iterative reconstruction. Contrast material: OMNI 350; Contrast volume: 100 ml; Contrast route: INTRAVENOUS (IV);? COMPARISON: CT ABDOMEN PELVIS W 11/28/2022 1:47 PM FINDINGS: Liver: Normal. No mass. Gallbladder and bile ducts: Normal. No calcified stones. No ductal dilation. Pancreas: Normal. No ductal dilation. Spleen: Normal. No splenomegaly. Adrenal glands: Normal. No mass. Kidneys and ureters: Normal. No hydronephrosis. Stomach and bowel: Colonic diverticulosis There is evidence of bowel wall thickening involving the rectum and sigmoid colon, with significant surrounding fat stranding. Findings are suspicious for acute diverticulitis. There is a 1.7 x 1.3 cm loculated fluid collection adjacent to the distal sigmoid colon, suspicious for abscess. No visualized perforation. Small bowel loops are unremarkable. Appendix: No evidence of appendicitis. Intraperitoneal space: Small volume of free fluid within the pelvis. Vasculature: Unremarkable. No abdominal aortic aneurysm. Lymph nodes: Unremarkable. No enlarged lymph nodes. Urinary bladder: Unremarkable as visualized. Reproductive: Unremarkable as visualized. Bones/joints: Unremarkable. No acute fracture. Soft tissues: Unremarkable. IMPRESSION: 1. Colonic diverticulosis There is evidence of bowel wall thickening involving the rectum and sigmoid colon, with significant surrounding fat stranding. Findings are suspicious for acute diverticulitis. There is a 1.7 x 1.3 cm loculated fluid collection adjacent to the distal sigmoid colon, suspicious for abscess. No visualized perforation. 2. Small volume of free fluid within the pelvis. Labs Result diagrams: 12/14/22 03:10 12/14/22 03:10 Labs: Laboratory Results - last 24 hr 12/14/22 12/14/22 12/14/22 03:10 03:10 03:10 WBC 14.83 H RBC 4.20 Hgb 12.0 Hct 37.1 MCV 88 MCH 28.6 MCHC 32.3 RDW 13.0 Plt Count 451 H MPV 10.6 Immature Gran % 0.5 Neutrophils % 89.7 Lymphocytes % 4.7 Monocytes % 4.7 Eosinophils % 0.1 Basophils % 0.3 Nucleated RBC % 0.0 Absolute Neutrophils 13.30 H Absolute Lymphocytes 0.70 L Absolute Monocytes 0.70 Absolute Eosinophils 0.01 Absolute Basophils 0.04 Sodium 136 Potassium 4.1 Chloride 101 Carbon Dioxide 24.6 Anion Gap 10.4 BUN 10 Creatinine 0.7 Est GFR (CKD-EPI 2020) 97.12 Glucose 139 H Calcium 9.1 Total Bilirubin 0.4 AST 11 L ALT 8 L Alkaline Phosphatase 106 Total Protein 7.9 Albumin 3.0 L Lipase 46 Urine Color Urine Clarity Urine pH Ur Specific [place] Urine Protein Urine Ketones Urine Blood Urine Nitrite Urine Bilirubin Urine Urobilinogen Ur Leukocyte Esterase Urine Glucose COVID-19 Source SARS-CoV-2 (PCR) 12/14/22 12/14/22 05:45 05:45 WBC RBC Hgb Hct MCV MCH MCHC RDW Plt Count MPV Immature Gran % Neutrophils % Lymphocytes % Monocytes % Eosinophils % Basophils % Nucleated RBC % Absolute Neutrophils Absolute Lymphocytes Absolute Monocytes Absolute Eosinophils Absolute Basophils Sodium Potassium Chloride Carbon Dioxide Anion Gap BUN Creatinine Est GFR (CKD-EPI 2020) Glucose Calcium Total Bilirubin AST ALT Alkaline Phosphatase Total Protein Albumin Lipase Urine Color Yellow Urine Clarity Clear Urine pH 5.0 Ur Specific [place] <= 1.005 Urine Protein Negative Urine Ketones 15 H Urine Blood Negative Urine Nitrite Negative Urine Bilirubin Negative Urine Urobilinogen 0.2 Ur Leukocyte Esterase Negative Urine Glucose Negative COVID-19 Source Nasal/Nares SARS-CoV-2 (PCR) Negative Last Vital Signs Temp 97.9 F 12/14/22 07:42 Pulse 69 12/14/22 07:42 Resp 16 12/14/22 07:42 BP 130/73 12/14/22 07:42 Pulse Ox 95 12/14/22 07:42 Time Spent Time spent with Patient: 40-54 minutes Time was spent: preparing to see the patient(eg.review tests), obtaining and/or reviewing separately otained hiistory, ordering medications,tests, procedures, referring, communicating with other health livestock caretaker, indepentently interpreting results and counseling the patient
--- NOTE | 2022-12-14 12:57 | CHAPLAIN ---
Cinthia was resting in bed and enjoying some sun coming in her window when I visited. She said she is feeling better today. Cinthia is a member of the [employer] but declined my off to contact he schedule checker. She's been in touch with family. I explained my role and offered support.
--- NOTE | 2022-12-14 14:28 | PHA.REVIEW2 ---
Pharmacy Admission Review - Admission Clinical Review (Last Updated 12/14/22 @ 05:42 by Jennifer Deleon DO) Acute diverticulitis (Acute) Intraabdominal fluid collection (Acute) benzoyl peroxide Allergy (Mild, Verified 12/14/22 05:28) Rash famotidine [From Pepcid] Allergy (Mild, Verified 12/14/22 05:28) Resuscitation Status Full Code Height 5 ft 2 in Weight 48.988 kg - Renal Dosing Renal Dosing: BUN 10 mg/dL (7-18) 12/14/22 03:10 Creatinine 0.7 mg/dL (0.55-1.02) 12/14/22 03:10 Medications needing adjustments: Reviewed (Crcl ~44.5 mL/min current meds okay) - Anticoagulation Anticoagulation: Hgb 12.0 g/dL (11.2-15.7) 12/14/22 03:10 Hct 37.1 % (36.0-46.0) 12/14/22 03:10 Plt Count 451 10^3/uL (130-400) H 12/14/22 03:10 Creatinine 0.7 mg/dL (0.55-1.02) 12/14/22 03:10 DVT Prophylaxis: Reviewed Medications: Enoxaparin Therapeutic Anticoagulation: N/A - Opiate Usage Evaluate Pain Scale/Pains Meds: Reviewed Scheduled Bowel Reg ordered if on Opiates?: No - Relevant Labs Sodium 136 mmol/L (136-145) 12/14/22 03:10 Potassium 4.1 mmol/L (3.5-5.1) 12/14/22 03:10 Chloride 101 mmol/L (98-107) 12/14/22 03:10 Electrolytes, C-Reactive P, ESR: Reviewed - DM Control DM Control: Glucose 139 mg/dL (74-106) H 12/14/22 03:10 DM Control: Reviewed (No DM noted in medical history, no A1c on file) - Cardiac Review BP, HR, EF%: Reviewed - Qtc Review QTc: N/A - IV to PO Switch IV Medications: Reviewed (pt is currently NPO) - Home Meds Home Med List reviewed: Intervened (breztri (budesonide/glycopyrrolate/formoterol) listed on home med list in [email or web address] but looks like this might have been changed to symbicort (budesonide/formoterol) per external med history. Nursing to double check with patient.) - Current meds Current Medication Order Review: Reviewed - Comments Comments/Follow Ups: Watch VS, labs and for med changes (IV to po once pt is no longer NPO, possible renal dose adjustments). Antibiotic Review - Pharmacy Antibiotic Review Pharmacy Antibiotic Activity: Reviewed, no change (cipro and metronidazole ordered for diverticulitis)
[2022-12-14] MEDS: Docusate Sodium 100 MG CAP PO ×2 (14:37→19:27)
[2022-12-14] MEDS: Enoxaparin 40 MG/0.4 ML SYR SC (14:37)
[2022-12-14] MEDS: Budesonide/Formoterol 80/4.5 6.9 GM 60 PUFF INH IH (19:21)
[2022-12-15] MEDS: metroNIDAZOLE 500 MG/100 ML BAG 100 MG IVPB ×3 (03:19→20:31)
[2022-12-15] MEDS: CIPROFLOXACIN 400 MG/200 ML BAG 200 MG IVPB ×2 (05:30→17:49)
[2022-12-15 06:58] LABS: Abs Immature Grans 0.04 10^3/uL (0.0-0.06); Absolute Basophil Count 0.04 10^3/uL (0.0-0.2); Absolute Eosinophil Count 0.07 10^3/uL (0.0-0.7); Absolute Lymphocyte Count 1.24 10^3/uL (1.2-3.4); Absolute Monocyte Count 0.92 10^3/uL (0.1-0.8); Absolute Neutrophil Count 11.58 10^3/uL (1.2-6.7); Basophils % 0.3; Eosinophils % 0.5; HCT 33.2 % (36.0-46.0); HGB 10.9 g/dL (11.2-15.7); Immature Grans % 0.3; Lymphocytes % 8.9; MCH 29.2 pg (27.0-33.0); MCHC 32.8 % (32.0-36.0); MCV 89 fL (80-95); MPV 11.3 fL (8.0-11.0); Monocytes % 6.6; Neutrophils % 83.4; Platelet Count 416 10^3/uL (130-400); RBC 3.73 10^6/uL (3.93-5.22); RDW 13.2 % (11.7-14.6); RDW-SD 43.5 fL; WBC 13.89 10^3/uL (4.4-10.8)
[2022-12-15 07:06] LABS: Anion Gap 8.3 mmol/L (3-11); BUN 7 mg/dL (7-18); CO2 27.7 mmol/L (21.0-32.0); CREATININE 0.6 mg/dL (0.55-1.02); Calcium 8.5 mg/dL (8.5-10.1); Chloride 103 mmol/L (98-107); Glucose 114 mg/dL (74-106); Potassium 3.7 mmol/L (3.5-5.1); Sodium 139 mmol/L (136-145)
[2022-12-15 07:12] VITALS: BP 141/74; PULSE 72; RESP 16; TEMP 36.7; O2SAT 96
[2022-12-15] MEDS: Budesonide/Formoterol 80/4.5 6.9 GM 60 PUFF INH IH ×2 (07:55→21:17)
[2022-12-15] MEDS: Tiotropium Bromide-Respimat 10 PUFF INH IH (07:56)
[2022-12-15] MEDS: Docusate Sodium 100 MG CAP PO ×2 (08:05→14:18)
[2022-12-15] MEDS: Lactated Ringers 1,000 ML 100 ML IV (08:06)
--- NOTE | 2022-12-15 09:54 | W.PM.PROGNOT ---
Date of Service Date of service: 12/15/22 Time of Service: 09:54 Assessment and Plan Assessment and plan (1) Acute diverticulitis: Status: Acute Assessment and plan: This is a 62-year-old female with persistent acute diverticulitis since 10/2022, who has not succeeded with outpatient treatment. She has now developed a small abscess. However, given that she is clinically improving, and is not toxic, will hold off on an IR consult for now. If her clinical picture worsens, will consider requesting drainage. --advance to full liquids --d/c IV fluids --IV cipro/ metronidazole --add probitotic --OOB and ambulate --pain control --daily labs --anticipate d/c home tomorrow with full 14 days of abx treatment and repeat CT (2) Reactive airway disease: Assessment and plan: --continue home meds Subjective Subjective Interval history since last seen: Pt is feeling well today overall. She has occasional pangs of lower abdominal discomfort, but not consistent. She is passing non-bloody, non-mucoid mushy stools. No dysuria. Tolerating clear liquids. Scant nausea. +OOB and ambulating Exam Const General: cooperative, healthy appearing, comfortable and no acute distress Nutritional Appearance: average body habitus and well nourished Orientation: alert, awake and oriented x3 Neck Neck: normal visual inspection, trachea midline and supple Resp Effort & Inspection: normal respiratory effort and able to speak in complete sentences Auscultation: clear to auscultation bilaterally Cardio Rate: regular rate Rhythm: regular rhythm GI Inspection: normal to inspection, no abdominal wall ecchymosis and non-distended Palpation: soft, not firm, no guarding, not rigid and nontender Auscultation: normal bowel sounds Skin General skin exam: no rashes or lesions noted Psych Appearance: grossly normal and well kempt Mental Status: mental status grossly normal Speech and Movement: speech and movement normal Mood: congruent mood Attitude: cooperative Insight: insight good Judgment: judgment good Objective Last Vital Signs Temp 98.1 F 12/15/22 07:12 Pulse 72 12/15/22 07:12 Resp 16 12/15/22 07:12 BP 141/74 H 12/15/22 07:12 Pulse Ox 96 12/15/22 07:12 Laboratory Results - last 24 hr 12/15/22 12/15/22 06:20 06:20 WBC 13.89 H RBC 3.73 L Hgb 10.9 L Hct 33.2 L MCV 89 MCH 29.2 MCHC 32.8 RDW 13.2 Plt Count 416 H MPV 11.3 H Immature Gran % 0.3 Neutrophils % 83.4 Lymphocytes % 8.9 Monocytes % 6.6 Eosinophils % 0.5 Basophils % 0.3 Nucleated RBC % 0.0 Absolute Neutrophils 11.58 H Absolute Lymphocytes 1.24 Absolute Monocytes 0.92 H Absolute Eosinophils 0.07 Absolute Basophils 0.04 Sodium 139 Potassium 3.7 Chloride 103 Carbon Dioxide 27.7 Anion Gap 8.3 BUN 7 Creatinine 0.6 Est GFR (CKD-EPI 2020) 100.80 Glucose 114 H Calcium 8.5 Time Spent with Patient Time Spent with Patient: <25 minutes Time was spent: preparing to see the patient(eg.review tests), obtaining and/or reviewing separately otained hiistory, ordering medications,tests, procedures, referring, communicating with other health care team coordinator scheduler, indepentently interpreting results, counseling the patient and care coordination
[2022-12-15] MEDS: Normal Saline Flush 10 ML SYR IVP ×4 (10:12→20:32)
[2022-12-15] MEDS: Calcium Carbonate *TUMS* 500 MG CHEW PO ×2 (10:13→19:22)
[2022-12-15] MEDS: Lactobacillus Acidophilus CAP 1 CAP PO ×2 (14:18→20:31)
[2022-12-15] MEDS: Enoxaparin 40 MG/0.4 ML SYR SC (14:18)
[2022-12-15 15:24] VITALS: BP 124/68; PULSE 71; RESP 16; TEMP 37.2; O2SAT 96
[2022-12-15] MEDS: Ondansetron 4 MG/2 ML VIAL IVP (17:49)
[2022-12-15 23:30] VITALS: BP 129/67; PULSE 86; RESP 16; TEMP 37; O2SAT 94
[2022-12-16] MEDS: metroNIDAZOLE 500 MG/100 ML BAG 100 MG IVPB ×2 (04:32→11:42)
[2022-12-16] MEDS: CIPROFLOXACIN 400 MG/200 ML BAG 200 MG IVPB (06:14)
[2022-12-16] MEDS: Normal Saline Flush 10 ML SYR IVP ×2 (06:14→11:41)
[2022-12-16 06:30] LABS: Abs Immature Grans 0.02 10^3/uL (0.0-0.06); Absolute Basophil Count 0.04 10^3/uL (0.0-0.2); Absolute Eosinophil Count 0.11 10^3/uL (0.0-0.7); Absolute Lymphocyte Count 1.52 10^3/uL (1.2-3.4); Absolute Monocyte Count 0.88 10^3/uL (0.1-0.8); Absolute Neutrophil Count 6.15 10^3/uL (1.2-6.7); Basophils % 0.5; Eosinophils % 1.3; HCT 34.2 % (36.0-46.0); HGB 11.1 g/dL (11.2-15.7); Immature Grans % 0.2; Lymphocytes % 17.4; MCH 28.8 pg (27.0-33.0); MCHC 32.5 % (32.0-36.0); MCV 89 fL (80-95); MPV 11.1 fL (8.0-11.0); Monocytes % 10.1; Neutrophils % 70.5; Platelet Count 464 10^3/uL (130-400); RBC 3.85 10^6/uL (3.93-5.22); RDW 13.4 % (11.7-14.6); RDW-SD 44.2 fL; WBC 8.72 10^3/uL (4.4-10.8)
[2022-12-16 06:44] LABS: Anion Gap 4.4 mmol/L (3-11); BUN 8 mg/dL (7-18); CO2 31.6 mmol/L (21.0-32.0); CREATININE 0.7 mg/dL (0.55-1.02); Chloride 103 mmol/L (98-107); Estimated GFR 97.12 (mL/min/1.73m2); Glucose 103 mg/dL (74-106); Sodium 139 mmol/L (136-145)
[2022-12-16 07:10] VITALS: BP 153/81; PULSE 73; RESP 19; TEMP 36.3; O2SAT 94
[2022-12-16] MEDS: Budesonide/Formoterol 80/4.5 6.9 GM 60 PUFF INH IH (07:41)
[2022-12-16] MEDS: Tiotropium Bromide-Respimat 10 PUFF INH IH (07:41)
[2022-12-16] MEDS: Docusate Sodium 100 MG CAP PO (07:44)
[2022-12-16] MEDS: Lactobacillus Acidophilus CAP 1 CAP PO (07:44)
--- NOTE | 2022-12-16 12:52 | DSE_ITS ---
Date of service: 12/16/22 Time of Service: 12:00 DS: Diagnosis Discharge Diagnosis (1) Acute diverticulitis: Status: Acute Asessment and Plan: 62yo female admitted with lingering acute diverticulitis for ~6 weeks. She was treated twice as an outpatient in one-week intervals. She presented here on 12/14 with increased pain, and dry heaving. She was found to have persistent acute diverticulitis with a small abscess (<2cm). Antibiotics were switched to cipro/flagyl, leukocytosis has normalized, and she is tolerating full liquids. --continue cipro/flagyl for 14 days total --full liquid diet --repeat CT scan abd/pel in 10-14 days --will need colonoscopy in 6-8 weeks after resolution Discharge Plan Disposition Patient Disposition: Home Condition: Improving Discharge Details Reason For Visit: Acute Diverticulitisw/Possible Abscess Admit Date/Time: 12/14/22 05:24 Admit Provider: Phillip Marsh Attending Provider: Phillip Marsh Primary Care Provider: Kit Garcia Hospital Course Hospital Course: This 62yo female admitted with lingering acute diverticulitis for ~6 weeks. She was treated twice as an outpatient in one-week intervals. She presented here on 12/14 with increased pain, and dry heaving. On clinical evaluation in the ED, she was found to have persistent acute diverticulitis with a small abscess (<2cm), and leukocytosis to 14.8K. She was admitted to the surgical service and started on IV cipro/flagyl. She has done well and her diet was advanced to full liquids, leukocytosis has normalized, and she has minimal intermittent pain. Home Meds and New Rx's Prescriptions: New ciprofloxacin HCl [Cipro] 500 mg tablet 500 mg PO Q12H Qty: 24 1RF metronidazole 500 mg tablet 500 mg PO Q8H Qty: 36 1RF ondansetron 4 mg tablet,disintegrating 4 mg PO Q8H PRNQty: 14 0RF Continued tiotropium bromide 18 mcg capsule, w/inhalation device 1 cap inhalation PRN PRN Rx Instructions: puncture 1 cap using device; one dose = 2 inhalations budesonide-formoterol [Symbicort] 80-4.5 mcg/actuation HFA aerosol inhaler 1 inh INHALATION DAILY AM Label Comments: INHALE ONE PUFF BY MOUTH TWICE A DAY Discharge Instructions Instructions: Probiotic (By mouth), Diverticulitis (DC), Diverticulitis Diet (DC) Additional Instructions: Complete the all of the remaining TWELVE (12) days of ciprofloxacin and metronidazole, even if you are feeling better. If your pain persists, a refill is available. Recommend that you take an [id number] probiotic while on antibiotics. Alternate acetaminophen and ibuprofen for any pain control. If these are not sufficient, present to the emergency room, or if you have worsening symptoms. CT scan abd/pel in 10-14 days. F/u with PCP after CT scan. You will need a colonoscopy 6-8 weeks after the symptoms resolve. Activity:: Activity as Tolerated Equipment/Supplies:: No Equipment Needed Diet:: Full liquids Discharge Orders Other Ambulatory Orders: CT abdomen & pelvis w (Routine) Timeframe: 10 Day Location: None Selected Ordered By: Phillip Marsh DS: Summary Time Spent with Patient providing and/or coordinating discharge services: Less than 30 minutes Status at Discharge Functional status at discharge: independent ambulation Overall status at discharge: patient is progressing back to baseline Mental Status: mental status grossly normal Speech and Movement: speech and movement normal Mood: congruent mood Affect: normal affect Exam Const General: cooperative, healthy appearing, comfortable and no acute distress Nutritional Appearance: average body habitus and well nourished Orientation: alert, awake and oriented x3 Neck Neck: normal visual inspection, trachea midline and supple Resp Effort & Inspection: normal respiratory effort and able to speak in complete sentences Auscultation: clear to auscultation bilaterally Cardio Rate: regular rate Rhythm: regular rhythm GI Inspection: normal to inspection, no abdominal wall ecchymosis and non-distended Palpation: soft, not firm, no guarding, not rigid and tender (very mild in RLQ) Auscultation: normal bowel sounds Skin General skin exam: no rashes or lesions noted Psych Appearance: grossly normal and well kempt Mental Status: mental status grossly normal Speech and Movement: speech and movement normal Mood: congruent mood Affect: normal affect Attitude: cooperative Insight: insight good Judgment: judgment good DS: Data Vitals/I&O Vitals and I&O: Vital Signs Temperature 97.3 F L 12/16/22 07:10 Temperature Source Tympanic 12/16/22 07:10 Pulse 73 12/16/22 07:10 Pulse Rhythm Regular 12/16/22 07:45 Respiratory Rate 19 12/16/22 07:10 Respiratory Effort Non-Labored 12/16/22 07:45 Respiratory Depth Normal 12/16/22 07:45 Respiratory Pattern Normal 12/16/22 07:45 Blood Pressure 153/81 H 12/16/22 07:10 Blood Pressure Position Supine 12/14/22 02:53 Pulse Oximetry 94 12/16/22 07:10 Oxygen Delivery Method Room Air 12/16/22 07:10 Oxygen Flow Rate 0 12/16/22 07:10 Pain Level 0 12/16/22 07:10 Comment 12/14/22 15:26 Intake & Output 12/15/22 12/16/22 12/16/22 23:59 11:59 23:59 Intake Total 400 / 1921.667 300 / 300 Output Total 1150 / 1750 200 / 1200 1000 / 1200 Balance -750 / 171.667 100 / -900 -1000 / -900 Intake: IV 400 / 1921.667 300 / 300 Output: Urine 1150 / 1750 200 / 1200 1000 / 1200 Other: Urine Color Yellow Straw Yellow Urine Appearance Clear Clear Clear Urine Odor None None Voiding Methods Toilet Toilet Toilet Data Completed and Pending Labs on day of discharge: Labs from last 24 hours 12/16/22 12/16/22 06:00 06:00 WBC 8.72 RBC 3.85 L Hgb 11.1 L Hct 34.2 L MCV 89 MCH 28.8 MCHC 32.5 RDW 13.4 Plt Count 464 H MPV 11.1 H Immature Gran % 0.2 Neutrophils % 70.5 Lymphocytes % 17.4 Monocytes % 10.1 Eosinophils % 1.3 Basophils % 0.5 Nucleated RBC % 0.0 Absolute Neutrophils 6.15 Absolute Lymphocytes 1.52 Absolute Monocytes 0.88 H Absolute Eosinophils 0.11 Absolute Basophils 0.04 Sodium 139 Potassium 4.0 Chloride 103 Carbon Dioxide 31.6 Anion Gap 4.4 BUN 8 Creatinine 0.7 Est GFR (CKD-EPI 2020) 97.12 Glucose 103 Calcium 9.0 PFSH All Active Problems (Updated 12/14/22 @ 05:42 by Jennifer Deleon DO) Acute diverticulitis (Acute) Intraabdominal fluid collection (Acute) Dermatofibroma of right lower extremity (Acute) excised 12/09 Skin tags, multiple acquired (Acute) Medical History (Updated 12/14/22 @ 05:42 by Jennifer Deleon DO) Osteoporosis Reactive airway disease 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 Surgical History (Updated 12/14/22 @ 03:23 by Jennifer Deleon DO) H/O ovarian cystectomy Social History Smoking/Tobacco Use Status: Never Smoking risk assessment performed?: Yes Alcohol Intake: never Drug use: Never Substance use type: does not use Do you feel safe at home: Yes Do you feel safe in your relationship?: Yes Time Spent with Patient Time Spent with Patient: <45 minutes Time was spent: preparing to see the patient(eg.review tests), obtaining and/or reviewing separately otained hiistory, ordering medications,tests, procedures, referring, communicating with other health anesthesiologist and critical care, indepentently interpreting results and counseling the patient
--- NOTE | 2022-12-16 14:34 | PDOC.CMDIS ---
- If Service Date Differs Date of service: 12/16/22 Time of Service: 14:34 LACE Index Scoring Tool - Questions: Length of Stay (in days): 2 Acuity (Admit via E.D.?): Yes E.D. Visits: 2 - Answers: Total Score: 7 Risk of Readmission: Low Risk Care Management Discharge Reason for Hospitalization: Acute diverticulitis with possible abscess Discharge Plan: Cinthia is discharged home via private vehicle with family. Cinthia will follow up with community providers and discharge plan of care as prescribed. New RX's are transmitted to [facility]. She will call her Primary Care on Saturday to make an Appointment in the next 7-10 days. Order is placed for an outpatient CT, recommended within 10-14 days. No new services are ordered. Patient/Family Education Needs: Review discharge instructions, limitations, medications and plan to follow up with community providers. Discuss ask me three and goals of self care.
== END 2022-12-16 14:51 | disposition home or self-care (01) ==
LOC: ER 05:39 → MS 06:18
PROVIDERS: Admitting Provider Surgery; Emergency Provider Physician Assistant; PCP Internal Medicine; Visit Provider Surgery
DX: K57.20 Diverticulitis of large intestine with perforation and abscess without bleeding (principal); J45.909 Unspecified asthma, uncomplicated; M81.0 Age-related osteoporosis without current pathological fracture; D72.829 Elevated white blood cell count, unspecified; Z20.822 Contact with and (suspected) exposure to COVID-19
CPT/HCPCS: 36415; 80048; 80053; 83690; 87635; 94640; 96361; 96365; 96366; 96367; 96368; 96375; 99285; J1650; 74177; 81003; 85025; 94664; G0378; J0131; J0744; J2405; J3490

== ENCOUNTER 2022-12-29 11:55 | Emergency (ER) | payer OTHER, SELFPAY ==
[2022-12-29 12:03] VITALS: BP 134/69; PULSE 94; RESP 18; TEMP 36.1; O2SAT 96
--- NOTE | 2022-12-29 12:03 | ED.GENADUL_ITS ---
Discharge Plan Disposition Patient Disposition: Home Discharge Details Clinical Impression: Cellulitis of left upper extremity Primary Care Provider: Kit Garcia ED Provider: Izaiah Meléndez Home Meds and New Rx's Prescriptions: New cephalexin 500 mg capsule 500 mg PO QID Qty: 20 0RF No Action tiotropium bromide 18 mcg capsule, w/inhalation device 1 cap inhalation PRN PRN Rx Instructions: puncture 1 cap using device; one dose = 2 inhalations alendronate [Fosamax] 70 mg tablet 70 mg PO QWEEK budesonide-formoterol [Symbicort] 80-4.5 mcg/actuation HFA aerosol inhaler 1 inh INHALATION DAILY AM Patient Comments: INHALE ONE PUFF BY MOUTH TWICE A DAY metronidazole 500 mg tablet 500 mg PO Q8H Qty: 36 1RF Discharge Instructions Instructions: Cellulitis (ED) Additional Instructions: You were seen in the emergency department for the pain and swelling on your left upper extremity. No history of this concern for the possibility of cellulitis which is a skin infection for which you are receiving additional antibiotics which you should take as directed. As we discussed, you could certainly develop a blood clot in your arm. If you notice any redness swelling pain or have any other concerns please return immediately to the emergency department. Otherwise please follow-up as needed with your primary care provider next week. For pain please take acetaminophen (Tylenol) 500 mg every 8 hours as needed. Discharge Data Discharge Physician: Izaiah Meléndez Medical Decision Making This is an overall very well-appearing normothermic and not tachycardic 62-year-old female with transient nondominant left upper extremity swelling and pain 2 days status post IV insertion concerning for the possibility of early cellulitis for which patient will be treated as an outpatient with cephalexin given her lack of risk factors for MRSA. I considered left upper extremity DVT however the patient has not had a recent PICC line, recent catheters, permacath nor pacemaker/AICD. Furthermore she has not been participating in any extreme upper extremity workouts such as [employer] nor does she have a history of malignancy. She has no signs of contrast extravasation. She is on 1 more day of ciprofloxacin given her recent episode of diverticulitis. We will add cephalexin for 5 days to cover for possibility of cellulitis. She had no pain out of proportion to suggest necrotizing soft tissue infection. I considered sepsis however the patient lacked systemic symptoms and she had vitals not meeting SIRS criteria. As result I did not obtain blood cultures lactate nor did I I feel that the patient required empiric IV antibiotics. We will proceed with an empiric trial of expectant outpatient management. I gave patient return indications including any worsening pain, erythema, swelling, or any fevers. Patient understood her return indications and will follow up with her primary care provider as needed. HPI General Date/Time Provider Initiated Documentation: 12/29/22 12:02 . HPI Narrative: This is a right-handed 62-year-old female [address] scan with transient left upper extremity IV placement now with tenderness and swelling at the site of her IV. Patient notes that she has had 4 CTs in the past 2 months in the setting of diverticulitis. She is on outpatient ciprofloxacin and recently completed a course of metronidazole. 2 days ago she was back in the hospital having an outpatient repeat CT scan. Chart review indicates she had a CT abdomen pelvis with IV contrast. She said that she woke up this morning and noticed some swelling and tenderness at the site of her IV insertion. She did not have any recent PICC lines. She notes that she last had a PICC line 19 or 20 years ago. She has not noticed any streaking signs of infection, nor any drainage from her IV. This morning she did note some transient redness at the site of her IV. She has very minimal discomfort. Concerning her abdomen she has had no recent diarrhea and she has no worsening abdominal pain. She has had no recent fevers chills chest pain or shortness of breath. She has had no numbness or tingling in her left upper extremity. Patient reports no history of abscesses or boils in the past. Related Data Home Medications Medication Instructions Recorded Confirmed tiotropium bromide 18 mcg capsule 1 cap inhalation PRN PRN 11/27/21 12/29/22 with inhalation device budesonide-formoterol HFA 80 1 inh inhalation DAILY AM 12/14/22 12/29/22 mcg-4.5 mcg/actuation aerosol inhaler (Symbicort) metronidazole 500 mg tablet 500 mg PO Q8H #36 tabs 12/16/22 12/29/22 alendronate 70 mg tablet (Fosamax) 70 mg PO QWEEK 12/28/22 12/29/22 cephalexin 500 mg capsule 500 mg PO QID #20 caps 12/29/22 Previous Rx's Medication Instructions Recorded metronidazole 500 mg tablet 500 mg PO Q8H #36 tabs 12/16/22 cephalexin 500 mg capsule 500 mg PO QID #20 caps 12/29/22 Allergies Allergy/AdvReac Type Severity Reaction Status Date / Time benzoyl peroxide Allergy Mild Rash Verified 12/14/22 05:28 famotidine [From Pepcid] Allergy Mild vitals Verified 12/28/22 14:07 dropped General ERIN: 3 PFSH All Active Problems (Updated 12/29/22 @ 12:25 by Izaiah Meléndez MD) Cellulitis of left upper extremity (Acute) Acute diverticulitis (Acute) Intraabdominal fluid collection (Acute) Dermatofibroma of right lower extremity (Acute) excised 12/09 Skin tags, multiple acquired (Acute) Medical History (Updated 12/29/22 @ 12:25 by Izaiah Meléndez MD) Osteoporosis Reactive airway disease 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 Head: Normocephalic, atraumatic Ear, nose, mouth, throat: Grossly normal inspection. Normal voice, handling secretions normally. Neck: Trachea midline. Cardiovascular: Well-perfused distal extremities. Respiratory: Nonlabored respiration. Gastrointestinal: Nondistended abdomen. Musculoskeletal: In the antecubital fossa of the left upper extremity there is a mild area of tenderness overlying the basilic vein in which patient had her recent IV placed. There is no significant fluctuance. No significant erythema. Left upper extremity is warm well perfused. Sensation motor function intact in the left hand across the radial, median, and ulnar nerve distributions. 2+ left radial pulse. Cap refill less than 2 seconds in the left fingertips. Proximal left upper extremity no significant tenderness throughout humerus. No significant warmth or erythema in proximal left upper extremity. Photo of left antecubital fossa shown here: . Skin: Normal for age and race, grossly normal temperature and turgor. No acute rash. Neurologic: Alert and appropriate, no apparent acute deficits. Psychiatric: Mood and manner are appropriate. Grooming and personal hygiene are appropriate.
[2022-12-29] MEDS: Cephalexin 500 MG CAP PO (12:29)
== END 2022-12-29 12:35 | disposition home or self-care (01) ==
PROVIDERS: Emergency Provider Emergency Medicine; PCP Internal Medicine
DX: L03.114 Cellulitis of left upper limb (principal)
CPT/HCPCS: 99283; 99284

== ENCOUNTER 2023-11-04 17:08 | Emergency (ER) | payer OTHER, SELFPAY ==
[2023-11-04] VITALS (28 sets, daily range): BP systolic 47–133; BP diastolic 26–114; PULSE 88–211; RESP 12–30; TEMP 36.8; O2SAT 93–99
--- NOTE | 2023-11-04 17:00 | RT.EKG_ITS ---
APPROVED REPORT Exam: Resting ECG Reason for Exam: syncopal episode Patient Location: E HR:120 bpm ECG Measurements Heart Rate 120 AXIS UT 103 P 76 QRSd 73 QRS 75 QT 315 T 71 QTc 445 Conclusion Sinus tachycardia...rate> 99 Ventricular premature complex...V complex w/ short R-R interval Probable left atrial enlargement...P >50mS, <-0.10mV V1 Probable anterolateral infarct, acute...ST >0.15mV, V2-V6,I,aVL Narrow complex sinus tachycardia at a rate of [address] segment elevations con sistent with STEMI. No reciprocal depressions. Shortened UT no obvious delta wave. QTc within norm al limits. No prior for comparison.
--- NOTE | 2023-11-04 17:14 | DI.CT_ITS ---
Exam(s) CT HEAD CERVICAL SPINE WO EXAM: CT HEAD CERVICAL SPINE WO CLINICAL HISTORY: Head strike. TECHNIQUE: Imaging Protocol: Axial computed tomography images with coronal and sagittal reformatted images were created and reviewed COMPARISON: No exams were available for comparison FINDINGS: BRAIN: There are no skull fractures nor fluid in the visualized paranasal sinuses. There is no evidence of intracranial hemorrhage, mass effect, or shift of midline structures. There are no extra-axial fluid collections. The ventricles are not enlarged or shifted and there is no blo od within the ventricular system nor within the basal cisterns. CERVICAL SPINE: There is a subtle nondisplaced fracture of the anterosuperior aspect of C5 vertebral body without sig nificant widening of the anterior disc space at this level. No listhesis. No facet malalignment. N o other fractures evident the cervical spine. There is an element of chronic degenerative disc disea se at C6-7 level including disc space narrowing and small bilateral Luschka joint osteophytes. There is multilevel level facet arthropathy, more so on the left than the right side. There is no fa cet joint malalignment evident. There is no significant facet joint malalignment. No significant osseous lesions evident. Abnormal normal markings both upper lobes incidentally noted. IMPRESSION: No acute intracranial findings on this noninfused CT scan of the brain. Fracture of the anterior superior aspect of C5 vertebral body with minimal displacement. No facet ma lalignment. Called to ER physician. RADIATION DOSE DELIVERED: Total DLP DATA REPOSITORY: All CT scans at this facility are submitted to the National Radiology Data Registry (NRDR) Dose Index Registry (DIR) with the [employer] ([employer]). RADIATION OPTIMIZATION: All CT scans at this facility use at least one of these dose optimization te chniques: automated exposure control; mA and/or kV adjustment per patient size (includes targeted exa ms where dose is matched to clinical indication); or iterative reconstruction.
--- NOTE | 2023-11-04 17:30 | DI.RAD_ITS ---
Exam(s) XR PORTABLE CHEST AP EXAM: XR PORTABLE CHEST AP CLINICAL HISTORY: STEMI. TECHNIQUE: 2D digital imaging was performed. COMPARISON: CR XR CHEST 2V PA LATERAL from 08/24/2021 CR XR PELVIS AP from 11/04/2023 FINDINGS: Single AP portable view. Heart size is upper normal. The mediastinum is not widened. There is extensive infiltrate in the right lung predominantly mid and upper lung zones as well as in the upper left lung zone. This is superimposed upon COPD findings. No obvious pleural effusions. N o pulmonary edema. No pneumothorax. IMPRESSION: Bilateral infiltrates, more so on the right side. No obvious pleural effusions. DATA REPOSITORY: RADIATION DOSE DELIVERED:
--- NOTE | 2023-11-04 17:32 | ED.GENADUL_ITS ---
Discharge Plan Disposition Patient Disposition: Transfer-Acute Inpatient Care Specific Acute Inpt Facility: [facility] Discharge Details Clinical Impression: ST elevation (STEMI) myocardial infarction, Closed cervical spine fracture Primary Care Provider: Kit Garcia ED Provider: Izaiah Meléndez Home Meds and New Rx's Prescriptions: No Action tiotropium bromide 18 mcg capsule, w/inhalation device 1 cap inhalation PRN PRN Rx Instructions: puncture 1 cap using device; one dose = 2 inhalations alendronate [Fosamax] 70 mg tablet 70 mg PO QWEEK budesonide-formoterol [Symbicort] 80-4.5 mcg/actuation HFA aerosol inhaler 1 inh INHALATION DAILY AM Patient Comments: INHALE ONE PUFF BY MOUTH TWICE A DAY Discharge Data Discharge Date/Time-TO BE ENTERED AT DEPARTURE: 11/04/23 19:41 HPI General Date/Time Provider Initiated Documentation: 11/04/23 17:25 . HPI Narrative: MDM Patient seen immediately upon arrival in the setting of STEMI. ECG shows inferior lateral ST segment elevations. Given head strike and neck pain there will be a delay in TNK administration secondary to need for CT scanning of head and neck. I was in touch with Dr. Mckenzie construction contractor at [facility]. He accepted the patient on behalf of Dr. Coppola. He agreed with CT scan first prior to TNK weight-based dosing, heparin infusion, clopidogrel and aspirin loads. Will also order norepinephrine in the event that the patient becomes more hypotensive. No chest pain to suggest aortic dissection. Not hypoxic nor complaining of chest pain so doubt PE. Clear equal breath sounds so doubt pneumothorax. No significant trauma so doubt traumatic aortic injury. No cough to suggest pneumonia. Will reassess following CT scan. [facility] has been contacted. 5:45 PM Patient back from CT mentating clearly. No obvious bleed on CT so antiplatelet and TNK given. No bleed on head per rads. CT cervical concerning for acute C5 fracture. Given concern for C5 fracture will touch base with trauma at [facility]. [facility] in route. Patient collared and in spinal precautions. 6:05 PM Elevated troponin at 604 ng/L. Normal reassuring magnesium. No FLY. Mild anion gap mild hyperglycemia but normal bicarbonate??not consistent with DKA. elevated proBNP. CBC lacks anemia thrombocytopenia and leukocytosis. I have ordered a chest x-ray and a pelvis film. 6:15 PM I spoke with Dr. Villegas from trauma at [facility] [place]. She advised that plain films would be indicated. She advised deferring CT angiogram of the patient's neck. She advised either trauma huber scan or fast exam. Given that the patient was transiently hypotensive and has the potential to require vasoactive medications with possibility of dysrhythmia will elect for bedside FAST exam and defer trauma huber scan at this point time. 6:40 PM Patient is on peripheral norepinephrine as her blood pressure was 84/38. She is mentating clearly. Her MAP is currently greater than 65 on 5 mcg of norepinephrine. Chest x-ray read as bilateral infiltrates more on the right. No obvious pleural effusions. No obvious pelvic fracture on AP pelvis. On limited bedside FAST exam patient did have trace pericardial effusion. It was not circumferential. Is unclear the origin of this effusion. Will update trauma at [facility] [place]. Is certainly possible that this is traumatic given her history of trauma. It is also possible that this could be reactive secondary to the TNK and antiplatelet agents given. It is unclear whether or not the infarct could have caused this trace pericardial effusion as patient also appeared to have a lateral wall motion abnormality. She also appears to have a decreased EF. Given her influenza positive status is possible that she could have a viral myopericarditis. Few days of decreased EF but it appears to be a moderate squeeze so my suspicion is lower for Takotsubo's cardiomyopathy. Nonetheless patient will benefit from left heart catheterization given age and concerning ECG. 7:[address] Villegas on the patient's trace pericardial effusion. Patient is in route to [facility] and should be there by 8:15 PM. I signed the patient out at bedside to the team from [facility]. Chronic conditions affecting the care of the patient: N/A History obtained from an outside historian: Paramedics External record review: [facility] EMR Diagnostic interpretations performed by me: Bilateral increased interstitial markings Per my independent interpretation chest x-ray shows: Per my independent interpretation EKG shows: Narrow complex sinus tachycardia at a rate of [address] segment elevations consistent with STEMI. No reciprocal depressions. Shortened AR no obvious delta wave. QTc within normal limits. No prior for comparison. Medications: Clopidogrel, aspirin, TNK, and heparin in addition to ondansetron and fluids Social determinants of health affecting disposition: N/A Management discussed with: Blanca [facility] & rads @ [facility] Treatment/interventions considered: N/A Response to therapies provided: Improved blood pressure status post fluids and norepinephrine HPI This is 63-year-old female arrived to the emergency department as a STEMI alert via paramedics. Patient reportedly had a syncopal episode and fell forward hitting her head on a bathtub. She complains of neck pain. She has a history of COPD. She is recently tested positive for the flu. She is having no chest pain and no shortness of breath. She denies history of coronary artery disease, hypertension, hyperlipidemia and diabetes. No significant family history of premature coronary artery disease. Patient denies routine tobacco, ethanol, and illicits. Patient reports that she tested positive for the flu today. She reports that she has not been eating and drinking well today. Exam General: Uncomfortable and pale-appearing in no acute distress speaking in complete sentences. Head: Normocephalic, abrasion to forehead. Eye: Extraocular eye movements intact. No conjunctival injection. No scleral icterus. Ear, nose, mouth, throat: Grossly normal inspection. Normal voice, handling secretions normally. No hemotympanum bilaterally. No septal hematoma. Neck: Trachea midline. wearing collar w/midline cervical spine tenderness. Cardiovascular: Well-perfused distal extremities. Rapid regular rate. Chest wall no signs of trauma no tenderness. Respiratory: Nonlabored respiration. Clear lungs bilaterally. Back: No midline thoracic nor lumbar spinal tenderness. No step-offs. No deformities. Gastrointestinal: Nondistended abdomen. Soft nontender. No signs of trauma to abdomen. Musculoskeletal: No edema. Moving all 4 extremities spontaneously. No tenderness to bilateral upper and lower extremities. Skin: Normal for age and race, grossly normal temperature and turgor. No acute rash. Neurologic: Alert and appropriate, no apparent acute deficits. GCS 15. 5 out of 5 bilateral upper and lower motor strength. Psychiatric: Mood and manner are appropriate. Grooming and personal hygiene are appropriate. Related Data Home Medications Medication Instructions Recorded Confirmed tiotropium bromide 18 mcg capsule 1 cap inhalation PRN PRN 11/27/21 11/04/23 with inhalation device budesonide-formoterol HFA 80 1 inh inhalation DAILY AM 12/14/22 11/04/23 mcg-4.5 mcg/actuation aerosol inhaler (Symbicort) alendronate 70 mg tablet (Fosamax) 70 mg PO QWEEK 12/28/22 11/04/23 Allergies Allergy/AdvReac Type Severity Reaction Status Date / Time benzoyl peroxide Allergy Mild Rash Verified 11/04/23 18:17 famotidine [From Pepcid] Allergy Mild vitals Verified 11/04/23 18:17 dropped General Stated Complaint: Arrhythmia ERIN: 2 PFSH All Active Problems (Updated 11/04/23 @ 23:14 by Izaiah Meléndez MD) Closed cervical spine fracture (Acute) ST elevation (STEMI) myocardial infarction (Acute) Acute diverticulitis (Acute) Intraabdominal fluid collection (Acute) Dermatofibroma of right lower extremity (Acute) excised 12/09 Skin tags, multiple acquired (Acute) Medical History Osteoporosis Reactive airway disease 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 Surgical History H/O ovarian cystectomy Social History Smoking/Tobacco Use Status: Never Smoking risk assessment performed?: Yes Alcohol Intake: never Drug use: Never Substance use type: does not use Do you feel safe at home: Yes Do you feel safe in your relationship?: Yes Course Vital Signs Vital signs: Vital Signs Pulse 123 H 11/04/23 17:08 Respiratory Rate 18 11/04/23 17:08 Temperature 36.8 C 11/04/23 17:15 Temperature Source Oral 11/04/23 17:15 Pulse 102 H 11/04/23 17:15 Respiratory Rate 20 11/04/23 17:15 Respiratory Effort Normal 11/04/23 17:12 Blood Pressure 84/38 L 11/04/23 17:15 Pulse Oximetry 96 11/04/23 17:15 Oxygen Delivery Method Room Air 11/04/23 17:15 Oxygen Flow Rate 0 11/04/23 17:15 Pain Level 0 11/04/23 17:12 Comment pt states that she is feelin dizy and nauseous at this time 11/04/23 17:15 Critical Care Time Critical Care Time Critical Care Time: Yes Total Critical Care Time: 60 Attestation: Bedside assessment consultation with cardiology and trauma consultants at [facility]. Interpretation of chest x-ray ECGs and labs. POCUS Exam (ED) Limited Cardiac Exam DATE OF EXAM: 11/04/23 TIME OF EXAM: 18:54 PROVIDER THAT PERFORMED THE STUDY: Izaiah Meléndez IS THIS A REPEAT EXAM DURING THIS ENCOUNTER: no REASON FOR EXAM: TX VISUALIZED STRUCTURES: Four Chambers, Left ventricle and LVOT VIEW OBTAINED: Apical 4-Chamber, Parasternal long-axis and Subxiphoid PERTINENT FINDINGS/IMPRESSION: LV dysfunction and Pericardial effusion; No RV dilation DIFFERENTIAL DIAGNOSES: Moderate squeeze, aortic outflow track less than 4 cm, concern for lateral wall motion abnormality. RV less than LV, trace pericardial effusion. Exam complete Efast Exam DATE OF EXAM: 11/04/23 TIME OF EXAM: 18:48 PROVIDER THAT PEFORMED THE STUDY: Izaiah Meléndez IS THIS A REPEAT EXAM DURING THIS ENCOUNTER: no REASON FOR EXAM: Blunt abdominal trauma and Hypotension VISUALIZED STRUCTURES: Hepatorneal space, Pelvis, Pericardium and Perisplenic space PERTINENT FINDINGS/IMPRESSION: pericaridal effusion; no apparent free fluid, lung sliding, left side, lung sliding,right side, no pleural effusion on the right side and no pneumothorax on right side INCIDENTAL FINDINGS: Trace pericardial effusion. Bilateral lung sliding. No intra-abdominal free fluid. No significant pleural effusions bilaterally. Limited Transthoracic Echo: Exam complete Limited Abdominal Exam: Exam complete Limited Retroperitoneal Exam: Exam complete
[2023-11-04 17:34] LABS: HCT 45.6 % (36.0-46.0); HGB 15.4 g/dL (11.2-15.7); MCH 29.8 pg (27.0-33.0); MCHC 33.8 % (32.0-36.0); MCV 88 fL (80-95); Platelet Count 260 10^3/uL (130-400); RBC 5.16 10^6/uL (3.93-5.22); RDW 12.9 % (11.7-14.6); RDW-SD 42.2 fL; WBC 7.68 10^3/uL (4.4-10.8)
--- NOTE | 2023-11-04 17:45 | DI.RAD_ITS ---
Exam(s) XR PELVIS AP EXAM: XR PELVIS AP CLINICAL HISTORY: Fall. TECHNIQUE: 2D digital imaging was performed. COMPARISON: No exams were available for comparison FINDINGS: Single view. No evidence of acute pelvic nor hip fracture. Findings in the left pubic rami have appearance of hea led fracture sites. No osseous lesions. No obvious degenerative changes in the hips. IMPRESSION: Probable healed fractures of the left superior and inferior pubic rami. No obvious acute fractures. Hips appear unremarkable. DATA REPOSITORY: RADIATION DOSE DELIVERED:
[2023-11-04 17:51] LABS: ALT 22 U/L (14-59); AST 42 U/L (15-37); Albumin 3.1 g/dL (3.4-5.0); Alkaline Phosphatase 68 U/L (46-116); Anion Gap 12.5 mmol/L (3-11); BUN 20 mg/dL (7-18); Bilirubin, Total 0.3 mg/dL (0.2-1.0); CO2 24.5 mmol/L (21.0-32.0); CREATININE 0.8 mg/dL (0.55-1.02); Calcium 8.7 mg/dL (8.5-10.1); Chloride 99 mmol/L (98-107); Estimated GFR 82.23 (mL/min/1.73m2); Glucose 168 mg/dL (74-106); Magnesium 1.9 mg/dL (1.8-2.4); Potassium 4.5 mmol/L (3.5-5.1); Sodium 136 mmol/L (136-145); Total Protein 7.5 g/dL (6.4-8.2)
[2023-11-04] MEDS: Ondansetron 4 MG/2 ML VIAL (17:51)
[2023-11-04] MEDS: Aspirin 81 MG CHEW 324 MG CH (17:51)
[2023-11-04] MEDS: Tenecteplase 50 MG KIT 30 MG IVP (17:51)
[2023-11-04] MEDS: Clopidogrel 300 MG TAB 600 MG PO (17:51)
[2023-11-04 17:55] LABS: Absolute Lymphocyte Count 0.77 10^3/uL (1.2-3.4); Absolute Monocyte Count 0.31 10^3/uL (0.1-0.8); Atypical Lymphocytes % 5; Bands % 3; Diff Comment Manual Differential; RBC Morphology Normal
[2023-11-04] MEDS: Heparin in 0.45% NaCl 25,000 UNIT/250 ML BAG 6.5 UNIT IV (17:56)
[2023-11-04 18:00] LABS: NT-proBNP 2440 pg/mL (<300)
[2023-11-04 18:01] LABS: Troponin I 604 ng/L (<or=60)
[2023-11-04] MEDS: Norepinephrine in D5W 8 MG/250 ML BAG 11.2 MG IV (18:43)
[2023-11-04] MEDS: Normal Saline 500 ML IV (19:43)
== END 2023-11-04 19:41 | disposition short-term general hospital (02) ==
LOC: ER 17:56
PROVIDERS: Emergency Provider Emergency Medicine; PCP Internal Medicine
DX: R55 Syncope and collapse (principal); M54.2 Cervicalgia
CPT/HCPCS: 36415; 76604; 76705; 76857; 80053; 93005; 93308; 96374; 96375; 99291; 70450; 71045; 72125; 72170; 83735; 83880; 84484; 85025; 93010; J2405; J3101